=== PATIENT | female | born 1950 | race Caucasian/White ===

== ENCOUNTER 2016-09-07 03:18 | Inpatient (IN) | payer OTHER, MEDICARE ==
[~2016-09-07] VITALS: Ht 160 cm; Wt 108.3 kg
[2016-09-07] VITALS (10 sets, daily range): BP systolic 120–128; BP diastolic 62–66; PULSE 73–169; RESP 17–20; Ht 160 cm; Wt 108.3 kg
[~2016-09-07 03:18] MED LIST: ASPI-664 PO; CANA100T PO; ERGO500014 PO; FURO-110 PO; LIRA0.6P2 SQ; METO100T13 PO; OMEP20CA9 PO; SITA1TAB7 PO; VALS80TA2 PO
[2016-09-07] MEDS ORDERED: IPRATROPIUM (NEB) 0.5 MG/2.5 ML AMP NEB STA (03:32)
[2016-09-07] MEDS ORDERED: ALBUTEROL 0.5% (NEB) 2.5 MG/0.5 ML AMP INH STA (03:32)
[2016-09-07] MEDS ORDERED: METHYLPREDNISOLONE 125 MG INJ IV ONE (04:00)
--- NOTE | 2016-09-07 04:27 | ERD ---
ER Documentation Chief Complaint Date/Time DATE: 09/07/16 TIME: 04:20 Chief Complaint asthma, cough x 4 days HPI 65-year-old female presents here in emergency department for complaints of cough for 4 days, dry cough, does not cough up any phlegm or blood. Patient has history of asthma. Patient has been having wheezing. Patient does not have any chest pain, dyspnea on exertion or dyspnea on lying down. Patient did not take any medications to help with symptoms ROS All systems reviewed and are negative except as per history of present illness. Medications Home Meds Reported Medications Liraglutide (Victoza 3-Genaro) 0.6 Mg/0.1 Ml Pen.injctr, 1.8 MG SQ DAILY, SYR 03/16/14 Ergocalciferol* (Drisdol* (Vitamin D2)) 50,000 Unit Capsule, 91899 UNIT PO Q7D, CAP 03/16/14 Valsartan* (Diovan*) 80 Mg Tablet, 80 MG PO QAM, TAB 03/16/14 Aspirin* (Aspirin* (EC)) 81 Mg Tablet.dr, 81 MG PO DAILY, TAB 03/16/14 Furosemide* (Lasix*) 20 Mg Tablet, 20 MG PO QAM, TAB 03/16/14 Canagliflozin (Invokana) 100 Mg Tablet, 100 MG PO DAILY, TAB 03/16/14 Omeprazole* (Prilosec*) 20 Mg Capsule.dr, 20 MG PO BID, CAP 03/16/14 Sitagliptin Phos-Metformin Hcl (Janumet) 50-1,000 Mg Tablet, 1 TAB PO BID, TAB 03/16/14 Metoprolol Succinate* (Toprol XL*) 100 Mg Tab.sr.24h, 100 MG PO DAILY, TAB 03/16/14 Allergies Allergies: Coded Allergies: ibuprofen (Verified Allergy, Unknown, 03/16/14) levofloxacin (Verified Allergy, Unknown, 03/16/14) PMhx/Soc History of Surgery: Yes (MASTECTOMY) Hx Cardiac Disorders: Yes (HTN) Hx Psychiatric Problems: No Hx Miscellaneous Medical Probl: Yes (DM, ARTHRITIS, GASTRITIS) Hx Alcohol Use: No Hx Substance Use: No Hx Tobacco Use: No Smoking Status: Never smoker FmHx Family History: No coronary disease, No diabetes, No other Physical Exam Vitals Vital Signs Date Time Temp Pulse Resp B/P Pulse Ox O2 Delivery O2 Flow Rate FiO2 09/07/16 05:14 88 Room Air 09/07/16 04:56 138 20 95 21 09/07/16 03:42 84 24 93 21 09/07/16 03:22 98.4 122 20 145/88 93 Physical Exam GENERAL: The patient is well developed and appropriate for usual state of health, in no apparent distress. CHEST: Bilateral wheezing noted. There are no rales, crackles or rhonchi. HEART: Regular rate and rhythm. No murmurs, clicks, rubs or gallops. No S3 or S4. ABDOMEN: Soft, nontender and nondistended. Good bowel sounds. No rebound or guarding. No gross peritonitis. No gross organomegaly or masses. No Williamson sign or McBurney point tenderness. BACK: No midline or flank tenderness. EXTREMITIES: Equal pulses bilaterally. There is no peripheral clubbing, cyanosis or edema. No focal swelling or erythema. Full range of motion. Grossly neurovascularly intact. NEURO: Alert and oriented. Cranial nerves 2-12 intact. Motor strength in all 4 extremities with 5/5 strength. Sensation grossly intact. Normal speech and gait. SKIN: There is no apparent rash or petechia. The skin is warm and dry. HEMATOLOGIC AND LYMPHATIC: There is no evidence of excessive bruising or lymphedema. No gross cervical, axillary, or inguinal lymphadenopathy. Results 24 hrs Current Medications Medications (Trade) Dose Ordered Sig/Debra Route PRN Reason Start Time Stop Time Status Last Admin Dose Admin Ipratropium [place] (Atrovent 0.02% (Neb)) 0.5 mg ONCE STAT NEB 09/07/16 03:32 09/07/16 03:34 DC 09/07/16 03:38 Albuterol (Proventil 0.5% (Neb)) 10 mg ONCE STAT INH 09/07/16 03:32 09/07/16 03:34 DC 09/07/16 03:38 Methylprednisolone Sodium Succinate (Solu-Medrol) 125 mg ONCE ONCE IV 09/07/16 04:00 09/07/16 04:01 DC 09/07/16 03:42 Levalbuterol (Xopenex Neb) 5 mg ONCE STAT INH 09/07/16 04:45 09/07/16 04:47 DC Breathing treatment of albuterol and Atrovent was given here in emergency department, after treatment, patient's lungs sounds are clear and patient's oxygenation is better. Patient verbalized feeling much better. PROCEDURE: XR Chest. CLINICAL INDICATION: Asthma exacerbation TECHNIQUE: Portable single view of the chest COMPARISON: 08/15/2014 FINDINGS: Again seen is mild cardiomegaly and aortic calcification. Exuberant calcification of the anterior ends of the first ribs again seen. There is mild pulmonary vascular congestion with a suggestion of mild interstitial edema. Probable left base atelectasis. No definite focal infiltrate or pleural effusion. IMPRESSION: Probable mild congestive heart failure. RPTAT: HLBE Physician Jun Date Time Electronically viewed and signed by Jane Burns Physician on 09/07/2016 05 :07 LE/ CC: LAKESHA MORENO NP Procedures/MDM Medical Decision Making: Patient wheezing episodes and shortness of breath and hypoxia continues to persist after breathing treatment here in the emergency department. Patient also has possible mild congestive heart failure noted in the chest x-ray. Patient's oxygen saturation is 89% on room air. Patient needs to be further managed and admitted to the hospital, discussedthis case with attending physician, Dr. Cruz, but states patient's admission to the hospital. Departure Diagnosis: Primary Impression: Acute asthma exacerbation Asthma severity: unspecified severity Qualified Code: J45.901 - Asthma with acute exacerbation, unspecified asthma severity Additional Impression: Hypoxia Condition: Fair LAKESHA MORENO NP September 07, 2016 04:27 LAKESHA MORENO NP September 07, 2016 04:27
[2016-09-07] MEDS ORDERED: LEVALBUTEROL (NEB) 1.25 MG/0.5 ML AMP INH STA (04:45)
--- NOTE | 2016-09-07 05:07 | RADRPT ---
PROCEDURE: XR Chest. CLINICAL INDICATION: Asthma exacerbation TECHNIQUE: Portable single view of the chest COMPARISON: 08/15/2014 FINDINGS: Again seen is mild cardiomegaly and aortic calcification. Exuberant calcification of the anterior e nds of the first ribs again seen. There is mild pulmonary vascular congestion with a suggestion of mild interstitial edema. Probable left base atelectasis. No definite focal infiltrate or pleural e ffusion. IMPRESSION: Probable mild congestive heart failure. RPTAT: HLBE Jane Burns Physician Date Time Electronically viewed and signed by Jane Burns Physician on 09/07/2016 05:07 LE/
[2016-09-07 05:35] LABS: ADD SCAN DIFF NO
[2016-09-07] MEDS ORDERED: FUROSEMIDE 40 MG INJ IV STA (05:38)
--- NOTE | 2016-09-07 05:38 | EN ---
Date/Time of Note Date/Time of Note DATE: 09/07/16 TIME: 05:37 ER Progress Note Evaluated patient have to transfer her to ER to. Persistent rales. Diuresed with Lasix. Admitted to hospitalist. Patient's heart failure symptoms is concerning for acute decompensation and will require inpatient workup and monitoring. Further w/u for ischemia, arrhythmia, PE or dissection will be deferred to the inpatient team. Accepting Care Team: Current data and ongoing care discussed. Time: 5:40 AM Primary Provider: Hospitalist Consulting: [XOXOXO] Outstanding Data: none REBEKAH FLANNERY September 07, 2016 05:38
[2016-09-07 06:02] LABS: BASOPHILS % 0.5 % (0.0-2.0); EOSINOPHILS # 0.2 10^3/ul (0.0-0.5); EOSINOPHILS % 1.7 % (0.0-7.0); LYMPHOCYTES # 2.7 10^3/ul (0.8-2.9); LYMPHOCYTES % 30.2 % (15.0-51.0); MEAN CORPUSCULAR HEMOGLOBIN 23.8 pg (29.0-33.0); MEAN CORPUSCULAR HGB CONC 29.2 g/dl (32.0-37.0); MEAN CORPUSCULAR VOLUME 81.6 fl (82.0-101.0); MEAN PLATELET VOLUME 12.3 fl (7.4-10.4); MONOCYTE # 0.4 10^3/ul (0.3-0.9); MONOCYTES % 4.9 % (0.0-11.0); NEUTROPHIL # 5.5 10^3/ul (1.6-7.5); NEUTROPHILS % 62.5 % (39.0-77.0); PLATELET COUNT 226 10^3/UL (140-415); RED BLOOD COUNT 5.88 10^6/ul (4.20-5.40); RED CELL DISTRIBUTION WIDTH 15.4 % (11.5-14.5); WHITE BLOOD COUNT 8.8 10^3/ul (4.8-10.8)
[2016-09-07 06:04] LABS: ALBUMIN 4.5 g/dl (3.3-4.9); CHLORIDE 97 mmol/L (97-110)
[2016-09-07 06:05] LABS: POTASSIUM 3.7 mmol/L (3.5-5.1); SODIUM 142 mmol/L (135-144)
[2016-09-07 06:07] LABS: ALANINE AMINOTRANSFERASE 44 IU/L (13-69); ALBUMIN/GLOBULIN RATIO 1.18; ALKALINE PHOSPHATASE 93 IU/L (42-121); ANION GAP 18 (8-16); ASPARTATE AMINO TRANSFERASE 38 IU/L (15-46); BILIRUBIN,INDIRECT 0.1 mg/dl (0-1.1); BILIRUBIN,TOTAL 0.1 mg/dl (0.2-1.3); CARBON DIOXIDE 31 mmol/L (21-31); CREATININE 0.57 mg/dl (0.44-1.00); TOTAL PROTEIN 8.3 g/dl (6.1-8.1)
[2016-09-07 06:08] LABS: BLOOD UREA NITROGEN 17 mg/dl (7-20); CALCIUM 9.4 mg/dl (8.4-10.2); GLUCOSE 181 mg/dl (70-220)
[2016-09-07 06:16] LABS: B-TYPE NATRIURETIC PEPTIDE 424 PG/ML (0-125)
[2016-09-07 06:27] LABS: TROPONIN-I < 0.012 ng/ml (0.00-0.12)
[2016-09-07] MEDS ORDERED: ACETAMINOPHEN 500 MG TAB PO STA (07:48)
[2016-09-07] MEDS ORDERED: ONDANSETRON 4 MG INJ IV PRN (09:30)
[2016-09-07] MEDS ORDERED: NACL 0.9% 3 ML SYG IV SCH (09:30)
[2016-09-07] MEDS ORDERED: morphine 2 MG INJ IV PRN (09:30)
[2016-09-07] MEDS ORDERED: LORAZEPAM 2 MG INJ IV PRN (09:30)
[2016-09-07] MEDS ORDERED: LEVALBUTEROL (NEB) 0.63 MG/3 ML AMP HHN PRN (09:30)
[2016-09-07] MEDS ORDERED: IPRATROPIUM (NEB) 0.5 MG/2.5 ML AMP HHN PRN (09:30)
[2016-09-07] MEDS: VALSARTAN 80 MG TAB PO SCH (10:47)
[2016-09-07] MEDS ORDERED: DEXTROSE 50% 50 ML SYRINGE IV PRN ×2 (11:00)
[2016-09-07] MEDS ORDERED: GLUCAGON 1 MG INJ IM PRN (11:00)
[2016-09-07] MEDS ORDERED: LABETALOL HCL 20MG INJ IV ONE (11:00)
[2016-09-07] MEDS ORDERED: GLUCOSE GEL 15 GRAM TUBE BUCCAL PRN (11:00)
[2016-09-07] MEDS ORDERED: METOPROLOL (XL) 50 MG TAB PO SCH (11:00)
[2016-09-07] MEDS ORDERED: GLUCOSE GEL 15 GRAM TUBE PO PRN ×2 (11:00)
[2016-09-07] MEDS: LINAGLIPTIN 5 MG TABLET PO SCH (11:28)
[2016-09-07] MEDS: CANAGLIFLOZIN XX SCH ×2 (11:30→19:30)
[2016-09-07] MEDS: [UNRECOGNIZED DRUG - OTHER] XX SCH ×2 (11:30→19:30)
--- NOTE | 2016-09-07 11:56 | CONS ---
Date/Time of Note Date/Time of Note DATE: 09/07/16 TIME: 11:46 Assessment/Plan Assessment/Plan Additional Assessment/Plan Shortness of breath with likely acute decompensated congestive heart failure SVT Hypertension Diabetes Obesity Skin and breast cancer -Patient shortness of breath likely multifactorial. Chest x-ray with mild pulmonary vascular congestion difficult to fully ascertain given patient's size. ECG without significant ischemic abnormalities. Will obtain serial cardiac enzymes, echocardiogram, increase IV Lasix to twice daily. Change beta- roxanne to twice daily dosing. Maintain potassium above 4.0 and magnesium above 2.0. Consultation Date/Type/Reason Admit Date/Time September 07, 2016 at 05:56 Type of Consultation: cv Reason for Consultation shortness of breath Hx of Present Illness This is a 65-year-old female with past medical history of hypertension, diabetes , skin and breast cancer who presented to the emergency room with 4 days symptoms of shortness of breath. Patient with intermittent cough which has been nonproductive and occasional wheezing. She denies any fevers or chills. She denies any chest pain, dizziness. She denies any lower extremity swelling. Shortness of breath is worse with exertion and lying down flat. Because of the above symptoms, she came to the emergency room for further evaluation and care. She does feel better since her admission. She does have symptoms of occasional palpitations which are usually worse with activity. She denies exertional dizziness or chest pain. 12 point review of systems was performed with all pertinent positives and negatives mentioned above and all else is negative Past Medical History Skin and breast cancer Medical History: high cholesterol, hypertension Past Surgical History Resection of tumors Family History Significant Family History: no pertinent family hx Social History Alcohol Use: none Smoking Status: Never smoker Other Social History Lives at home Exam/Review of Systems Vital Signs Vitals Vital Signs Date Time Temp Pulse Resp B/P Pulse Ox O2 Delivery O2 Flow Rate FiO2 09/07/16 10:21 169 09/07/16 09:59 98.0 18 128/64 91 09/07/16 08:51 Nasal Cannula 2.0 09/07/16 04:56 21 Exam No apparent distress, no dyspnea with speaking Constitutional: alert, obese, oriented Head: normocephalic Neck: supple Respiratory: other (Coarse breath sounds bilaterally, no wheezing) Cardiovascular: other (S1-S2 heard), regular rate and rhythm Gastrointestinal: bowel sounds, non-tender, soft Extremities: edema (Trace) Results Result Diagram: 09/07/16 0526 09/07/16 0526 Results 24 hrs Laboratory Tests Test 09/07/16 05:26 White Blood Count 8.8 Red Blood Count 5.88 H Hemoglobin 14.0 Hematocrit 48.0 H Mean Corpuscular Volume 81.6 L Mean Corpuscular Hemoglobin 23.8 L Mean Corpuscular Hemoglobin Concent 29.2 L Red Cell Distribution Width 15.4 H Platelet Count 226 Mean Platelet Volume 12.3 H Neutrophils % 62.5 Lymphocytes % 30.2 Monocytes % 4.9 Eosinophils % 1.7 Basophils % 0.5 Nucleated Red Blood Cells % 0.0 Neutrophils # 5.5 Lymphocytes # 2.7 Monocytes # 0.4 Eosinophils # 0.2 Basophils # 0.0 Nucleated Red Blood Cells # 0.0 Sodium Level 142 Potassium Level 3.7 Chloride Level 97 Carbon Dioxide Level 31 Anion Gap 18 H Blood Urea Nitrogen 17 Creatinine 0.57 Glucose Level 181 Calcium Level 9.4 Total Bilirubin 0.1 L Direct Bilirubin 0.00 Indirect Bilirubin 0.1 Aspartate Amino Transf (AST/SGOT) 38 Alanine Aminotransferase (ALT/SGPT) 44 Alkaline Phosphatase 93 Troponin I < 0.012 B-Type Natriuretic Peptide 424 H Total Protein 8.3 H Albumin 4.5 Globulin 3.80 H Albumin/Globulin Ratio 1.18 Medications Medications Current Medications Lorazepam (Ativan) 0.5 mg Q6H PRN IV ANXIETY; Start 09/07/16 at 09:30 Ondansetron HCl (Zofran Inj) 4 mg Q6H PRN IV NAUSEA AND/OR VOMITING; Start at 09:30 Furosemide (Lasix) 20 mg DAILY IV ; Start 09/08/16 at 09:00 Acetaminophen (Tylenol Tab) 650 mg Q6H PRN PO PAIN LEVEL 1-3 OR FEVER; Start at 09:30 Morphine Sulfate (morphine) 2 mg Q4H PRN IV PAIN LEVEL 7-10; Start 09/07/16 at 09:30 Enoxaparin Sodium (Lovenox) 40 mg DAILY SC ; Start 09/08/16 at 09:00 Ergocalciferol (Drisdol) 50,000 unit Q7D PO ; Start 09/14/16 at 09:00 Metoprolol Succinate (Toprol Xl) 100 mg DAILY PO Last administered on 10:47; Admin Dose 100 MG; Start 09/07/16 at 11:00 Valsartan (Diovan) 80 mg QAM PO Last administered on 09/07/16 10:47; Admin Dose 80 MG; Start 09/07/16 at 11:00 Miscellaneous Information 100 mg DAILY PO ; Start 09/08/16 at 09:00; Status UNV Miscellaneous Information 1.8 mg DAILY SQ ; Start 09/08/16 at 09:00; Status UNV Pantoprazole (Protonix Tab) 40 mg DAILY@,18 PO ; Start 09/07/16 at 18:00 Linagliptin (Tradjenta) 5 mg DAILY PO Last administered on 09/07/16 11:28; Admin Dose 5 MG; Start 09/07/16 at 11:00 Miscellaneous Information 1 ea NOTE XX ; Start 09/07/16 at 11:00 Glucose (Glutose) 15 gm Q15M PRN PO DECREASED GLUCOSE; Start 09/07/16 at 11:00 Glucose (Glutose) 22.5 gm Q15M PRN PO DECREASED GLUCOSE; Start 09/07/16 at 11: 00 Dextrose (D50w Syringe) 25 ml Q15M PRN IV DECREASED GLUCOSE; Start 09/07/16 at 11:00 Dextrose (D50w Syringe) 50 ml Q15M PRN IV DECREASED GLUCOSE; Start 09/07/16 at 11:00 Glucagon (Glucagen) 1 mg Q15M PRN IM DECREASED GLUCOSE; Start 09/07/16 at 11:00 Glucose (Glutose) 15 gm Q15M PRN BUCCAL DECREASED GLUCOSE; Start 09/07/16 at 11 :00 Miscellaneous Information (*Order Clarification Bulletin) MEDICATION REQUIRES CLARIFICATI... Q8H XX ; Start 09/07/16 at 11:30 Procedures Procedures ECG demonstrates sinus rhythm at 85 bpm, QRS 84 ms, no significant ischemic ST2 abnormality Telemetry reviewed with episode of SVT this morning as high as the 160s Tra Khan DO September 07, 2016 11:56
[2016-09-07] MEDS ORDERED: POTASSIUM CHLORIDE (SR) 20 MEQ TAB PO STA (11:57)
[2016-09-07] MEDS ORDERED: MAGNESIUM SULFATE 2 GM/50 ML 50 ML IVPB ONE (12:00)
--- NOTE | 2016-09-07 12:15 | HP ---
DATE OF ADMISSION: 09/07/2016 TIME SEEN: 6:30 a.m. CHIEF COMPLAINT: Cough. HISTORY OF PRESENT ILLNESS: The patient is a 65-year-old female with a history of hypertension, mya betes, gastritis who presents to the emergency department complaining of cough. Cough has almost en tirely been dry and has been going on for about 5 days now. Also reported shortness of breath. Den ied chest pain, fever, chills, nausea, vomiting. When presented to the ER, blood pressure 145/88, heart rate 122, respiratory rate 20, temperature 98 .4, oxygen saturation 93% on room air, but oxygen saturation has been documented in the ER to be as low as 88% on room air. Also, the heart rate has been as high as 146. Last CBC and CMP were within acceptable range. Chest x-ray shows mild pulmonary vascular congestion with a suggestion of mild i nterstitial edema and a probable left base atelectasis. BMP was just a little over 400. The patien t received 40 mg of IV Lasix, Solu-Medrol, and had breathing treatment with albuterol and Atrovent w hile she was in the ER. REVIEW OF SYSTEMS: A 12-point review was performed, negative except as mentioned in the HPI. PAST MEDICAL HISTORY: As per HPI. PAST SURGICAL HISTORY: Left-sided mastectomy. SOCIAL HISTORY: Denied a history of tobacco, alcohol. or illicit drug use. ALLERGIES: 1. IBUPROFEN. 2. LEVOFLOXACIN. HOME MEDICATIONS: 1. Toprol XL. 2. Diovan. 3. Aspirin. 4. Lasix. 5. Prilosec. 6. Invokana. 7. Victoza. 8. Janumet. 9. Vitamin B2. PHYSICAL EXAMINATION: VITAL SIGNS: Blood pressure 138/92, heart rate 101, respiratory rate 20, temperature earlier was 98 .4, oxygen saturation 94% on 3 L. GENERAL: No acute distress. HEENT: No obvious head deformity. Pupils reactive to light. Extraocular muscles intact. CARDIOVASCULAR: Tachycardic with regular rhythm. LUNGS: Scattered wheezing. ABDOMEN: Soft, nontender, nondistended. Positive bowel sounds. EXTREMITIES: There is ____ edema. LABORATORY: CBC and CMP within acceptable range. IMAGING: Chest x-ray with results as mentioned in the HPI. IMPRESSION: 1. Probable congestive heart failure. 2. Dry cough, likely secondary to above. 3. History of hypertension. 4. History of diabetes. 5. History of gastritis. OSCAR: Admit to telemetry unit. Will obtain a 2-D echo. We will continue her home medications with adjustment as needed. Will place her on IV Lasix instead. We will trend her troponins. Cardiology consult will be placed as needed. Further workup and management per clinical course. Dictated By: REBEKAH JOHNSON/GASPER Conf#: [id number] DID#: [id number]
--- NOTE | 2016-09-07 12:38 | RADRPT ---
Echocardiogram Report Patient Name: RENE CRUZ Gender: Female Date: 1950 Study Date: 07-Sep-2016 Green Inspector: Thalia Thomas [facility] Location: 5561 Ref. Physician: REBEKAH TIJERINA Quality: Technically Difficult Study Procedures: Transthoracic echocardiogram with complete 2D, M-Mode, and doppler examination. Indications: Congestive Heart Failure. 2D/M Mode Doppler Measurement Value Normal Ranges Measurement Value Normal Ranges LVIDd 2D 4.2 3.5 - 5.6 cm AV Peak Nasim 2.1 m/sec LVIDs 2D 2.5 2.1 - 4.1 cm AV Peak PG 18.0 mmHg FS 2D 41.1 % MV E Peak Nasim 0.9 m/sec LVPWd 2D 0.8 0.6 - 1.1 cm MV A Peak Nasim 1.3 m/sec IVSd 2D 0.8 0.6 - 1.1 cm MV E/A 0.7 IVS/LVPW 2D 1.0 MV Decel Time 130 msec AoR Diam 2D 2.6 2.0 - 3.7 cm MV E/A 0.7 LA/Ao 2D 1 0 - 1 TR Peak Nasim 2.1 m/sec EDV 2D 72.0 cm3 TR Peak PG 18.0 mmHg ESV 2D 14.7 cm3 RVSP 21.0 mmHg LA Dimen 2D 3.5 2.3 - 4.0 cm Findings Left Ventricle: Hyperdynamic left ventricular systolic function. Normal left ventricular cavity size. Normal left ventricular wall thickness. Ejection fraction is visually estimated at 70 %. Tissue Doppler/Mitral Doppler indices are consistent with impaired relaxation (Stage I diastolic dysfunction). Resting left ventricular outflow tract velocity 4.30 m/sec. Resting left ventricular outflow tract gradient 74.0 mmHg. Right Ventricle: Not well visualized. Left Atrium: The left atrium is normal in size. Right Atrium: The right atrium is normal in size. Mitral Valve: Normal appearance and function of the mitral valve with trace physiologic regurgitation. Aortic Valve: No significant aortic stenosis or insufficiency. Aortic cusps appear mildly calcified. Tricuspid Valve: Normal appearance of the tricuspid valve. Estimated peak PA systolic pressure 21 mmHg. There is trace tricuspid regurgitation. Pulmonic Valve: Pulmonic valve not well visualized. Pericardium: Normal pericardium with no significant pericardial effusion. Pleural effusion seen. Aorta: Not well visualized. IVC: Normal size and normal respiratory collapse consistent with normal right atrial pressure. Conclusions 1.Hyperdynamic left ventricular systolic function. Normal left ventricular cavity size. Normal left ventricular wall thickness. Ejection fraction is visually estimated at 70 %. Tissue Doppler/Mitral Doppler indices are consistent with impaired relaxation (Stage I diastolic dysfunction). 2.The left atrium is normal in size. 3.The right atrium is normal in size. 4.No significant valvular stenosis or regurgitation seen. 5.Normal pericardium with no significant pericardial effusion. Pleural effusion seen. Electronically Signed By: Tra Khan 07-Sep-2016 12:37:41 -0700 Patient Name: RENE CRUZ Study Date: 07-Sep-2016 [id number]
[2016-09-07] MEDS ORDERED: MAGNESIUM SULFATE 1 GM/D5W 100 ML IVPB ONE (15:00)
[2016-09-07] MEDS: ACETAMINOPHEN 325 MG TAB PO PRN (16:13)
[2016-09-07] MEDS: metFORMIN 500 MG TAB PO SCH (17:23)
[2016-09-07] MEDS ORDERED: FUROSEMIDE 20 MG INJ IV SCH (18:00)
[2016-09-07] MEDS: PANTOPRAZOLE (EC) 40 MG TAB PO SCH (18:15)
[2016-09-07] MEDS: INSULIN ASPART [NOVOLOG] 3 ML PEN SC SCH ×3 (18:53→20:50)
[2016-09-07] MEDS: METOPROLOL 50 MG TAB PO SCH (20:45)
[2016-09-07] MEDS: INSULIN GLARGINE [LANtus] 3 ML PEN SC SCH (20:46)
[2016-09-07] MEDS: ZOLPIDEM 5 MG TAB PO PRN (20:55)
[2016-09-08] VITALS (12 sets, daily range): BP systolic 97–133; BP diastolic 56–76; PULSE 57–78; RESP 16–20
[2016-09-08] MEDS: ACETAMINOPHEN 325 MG TAB PO PRN ×3 (00:16→11:54)
[2016-09-08] MEDS: ACCU-CHEK XX SCH (02:00)
[2016-09-08] MEDS: CANAGLIFLOZIN XX SCH ×3 (03:30→10:11)
[2016-09-08] MEDS: [UNRECOGNIZED DRUG - OTHER] XX SCH ×3 (03:30→10:11)
[2016-09-08] MEDS: PANTOPRAZOLE (EC) 40 MG TAB PO SCH ×2 (06:08→17:45)
[2016-09-08 07:16] LABS: ADD SCAN DIFF NO
[2016-09-08 07:24] LABS: BASOPHILS % 0.3 % (0.0-2.0); EOSINOPHILS # 0.1 10^3/ul (0.0-0.5); EOSINOPHILS % 0.8 % (0.0-7.0); HEMATOCRIT 45.5 % (37.0-47.0); HEMOGLOBIN 13.5 g/dl (12.0-16.0); LYMPHOCYTES # 2.7 10^3/ul (0.8-2.9); LYMPHOCYTES % 23.9 % (15.0-51.0); MEAN CORPUSCULAR HEMOGLOBIN 24.2 pg (29.0-33.0); MEAN CORPUSCULAR HGB CONC 29.7 g/dl (32.0-37.0); MEAN CORPUSCULAR VOLUME 81.5 fl (82.0-101.0); MEAN PLATELET VOLUME 12.5 fl (7.4-10.4); MONOCYTE # 0.9 10^3/ul (0.3-0.9); MONOCYTES % 7.6 % (0.0-11.0); NEUTROPHIL # 7.6 10^3/ul (1.6-7.5); NEUTROPHILS % 67.1 % (39.0-77.0); PLATELET COUNT 249 10^3/UL (140-415); RED BLOOD COUNT 5.58 10^6/ul (4.20-5.40); RED CELL DISTRIBUTION WIDTH 15.9 % (11.5-14.5); WHITE BLOOD COUNT 11.3 10^3/ul (4.8-10.8)
[2016-09-08 07:39] LABS: ALBUMIN 4.2 g/dl (3.3-4.9); ALBUMIN/GLOBULIN RATIO 1.13; BILIRUBIN,INDIRECT 0.1 mg/dl (0-1.1); BILIRUBIN,TOTAL 0.1 mg/dl (0.2-1.3); CALCIUM 9.4 mg/dl (8.4-10.2); CHOL/HDL RATIO 4.5 RATIO; CREATININE 0.6 mg/dl (0.44-1.00); POTASSIUM 4.8 mmol/L (3.5-5.1); TOTAL PROTEIN 7.9 g/dl (6.1-8.1)
[2016-09-08 08:04] LABS: THYROID STIMULATING HORMONE 0.852 MIU/L (0.465-4.680)
[2016-09-08] MEDS: metFORMIN 500 MG TAB PO SCH ×2 (08:50→17:45)
[2016-09-08] MEDS: VALSARTAN 80 MG TAB PO SCH (08:51)
[2016-09-08] MEDS: METOPROLOL 50 MG TAB PO SCH ×2 (08:51→22:04)
[2016-09-08] MEDS: LINAGLIPTIN 5 MG TABLET PO SCH (08:51)
[2016-09-08] MEDS: ENOXAPARIN 40 MG/0.4 ML SYG SC SCH (08:54)
[2016-09-08] MEDS: INSULIN ASPART [NOVOLOG] 3 ML PEN SC SCH ×7 (08:55→22:06)
[2016-09-08] MEDS ORDERED: NON-FORMULARY/PATIENT OWN MED (Canagliflozin (Invokana) 100 MG) XX SCH (09:00)
[2016-09-08] MEDS ORDERED: FUROSEMIDE 40 MG INJ IV SCH (09:00)
[2016-09-08] MEDS ORDERED: FUROSEMIDE 20 MG INJ IV SCH (09:00)
--- NOTE | 2016-09-08 11:08 | CONS ---
Date/Time of Note Date/Time of Note DATE: 09/08/16 TIME: 11:05 Assessment/Plan Assessment/Plan Additional Assessment/Plan Shortness of breath Mild acute decompensated diastolic congestive heart failure Hyperdynamic left ventricular systolic function SVT Hypertension Diabetes Obesity Skin and breast cancer -Patient's echocardiogram with normal ejection fraction and hyperdynamic. No significant valvular pathology. Patient with ambulation around hallway today with symptoms of fatigue and shortness of breath with saturation down to the mid 80s. It is unlikely that decompensated congestive heart failure is the main etiology of her shortness of breath and hypoxia. I would order a CT chest , pulmonary evaluation. Maintain potassium above 4.0 and magnesium above 2.0. Consultation Date/Type/Reason Admit Date/Time September 07, 2016 at 05:56 Initial Consult Date Type of Consultation: cv 24 HR Interval Summary Free Text/Dictation Shortness of breath is better. Denies chest pain or palpitations or dizziness. Exam/Review of Systems Vital Signs Vitals Vital Signs Date Time Temp Pulse Resp B/P Pulse Ox O2 Delivery O2 Flow Rate FiO2 09/08/16 08:30 60 09/08/16 07:26 98.0 18 115/76 94 09/08/16 04:00 Room Air 2.0 09/08/16 01:02 21 Intake and Output 09/07/16 09/07/16 09/08/16 15:00 23:00 07:00 Intake Total 150 ml 400 ml Balance 150 ml 400 ml Exam No apparent distress, sitting in chair Constitutional: alert, obese, oriented Head: normocephalic Neck: supple Respiratory: other (Coarse breath sounds bilaterally, no wheezing) Cardiovascular: other (S1-S2 heard), regular rate and rhythm Gastrointestinal: bowel sounds, non-tender, soft Extremities: other (Trace lower extremity edema) Results Result Diagram: 09/08/16 0640 09/08/16 0640 Results 24 hrs Laboratory Tests Test 09/07/16 11:27 09/07/16 15:09 09/07/16 17:22 09/07/16 18:47 Bedside Glucose 258 H 242 H 299 H Troponin I < 0.012 Test 09/07/16 20:38 09/08/16 01:51 09/08/16 06:40 09/08/16 07:35 Bedside Glucose 225 H 213 156 White Blood Count 11.3 #H Red Blood Count 5.58 H Hemoglobin 13.5 Hematocrit 45.5 Mean Corpuscular Volume 81.5 L Mean Corpuscular Hemoglobin 24.2 L Mean Corpuscular Hemoglobin Concent 29.7 L Red Cell Distribution Width 15.9 H Platelet Count 249 Mean Platelet Volume 12.5 H Neutrophils % 67.1 Lymphocytes % 23.9 Monocytes % 7.6 Eosinophils % 0.8 Basophils % 0.3 Nucleated Red Blood Cells % 0.0 Neutrophils # 7.6 H Lymphocytes # 2.7 Monocytes # 0.9 Eosinophils # 0.1 Basophils # 0.0 Nucleated Red Blood Cells # 0.0 Sodium Level 136 Potassium Level 4.8 Chloride Level 96 L Carbon Dioxide Level 32 H Anion Gap 13 Blood Urea Nitrogen 21 H Creatinine 0.60 Glucose Level 168 Hemoglobin A1c 8.3 H Calcium Level 9.4 Magnesium Level 2.0 Total Bilirubin 0.1 L Direct Bilirubin 0.00 Indirect Bilirubin 0.1 Aspartate Amino Transf (AST/SGOT) 37 Alanine Aminotransferase (ALT/SGPT) 45 Alkaline Phosphatase 70 Total Protein 7.9 Albumin 4.2 Globulin 3.70 H Albumin/Globulin Ratio 1.13 Triglycerides Level 95 Cholesterol Level 159 LDL Cholesterol, Calculated 105 HDL Cholesterol 35 Cholesterol/HDL Ratio 4.5 Thyroid Stimulating Hormone (TSH) 0.852 Medications Medications Current Medications Lorazepam (Ativan) 0.5 mg Q6H PRN IV ANXIETY; Start 09/07/16 at 09:30 Ondansetron HCl (Zofran Inj) 4 mg Q6H PRN IV NAUSEA AND/OR VOMITING; Start at 09:30 Acetaminophen (Tylenol Tab) 650 mg Q6H PRN PO PAIN LEVEL 1-3 OR FEVER Last administered on 09/08/16 06:08; Admin Dose 650 MG; Start 09/07/16 at 09:30 Morphine Sulfate (morphine) 2 mg Q4H PRN IV PAIN LEVEL 7-10; Start 09/07/16 at 09:30 Enoxaparin Sodium (Lovenox) 40 mg DAILY SC Last administered on 09/08/16 08:54 ; Admin Dose 40 MG; Start 09/08/16 at 09:00 Ergocalciferol (Drisdol) 50,000 unit Q7D PO ; Start 09/14/16 at 09:00 Valsartan (Diovan) 80 mg QAM PO Last administered on 09/08/16 08:51; Admin Dose 80 MG; Start 09/07/16 at 11:00 Miscellaneous Information 100 mg DAILY XX ; Start 09/08/16 at 09:00; Status UNV Miscellaneous Information 1.8 mg DAILY XX ; Start 09/08/16 at 09:00; Status UNV Pantoprazole (Protonix Tab) 40 mg DAILY@,18 PO Last administered on 06:08; Admin Dose 40 MG; Start 09/07/16 at 18:00 Linagliptin (Tradjenta) 5 mg DAILY PO Last administered on 09/08/16 08:51; Admin Dose 5 MG; Start 09/07/16 at 11:00 Miscellaneous Information 1 ea NOTE XX ; Start 09/07/16 at 11:00 Glucose (Glutose) 15 gm Q15M PRN PO DECREASED GLUCOSE; Start 09/07/16 at 11:00 Glucose (Glutose) 22.5 gm Q15M PRN PO DECREASED GLUCOSE; Start 09/07/16 at 11: 00 Dextrose (D50w Syringe) 25 ml Q15M PRN IV DECREASED GLUCOSE; Start 09/07/16 at 11:00 Dextrose (D50w Syringe) 50 ml Q15M PRN IV DECREASED GLUCOSE; Start 09/07/16 at 11:00 Glucagon (Glucagen) 1 mg Q15M PRN IM DECREASED GLUCOSE; Start 09/07/16 at 11:00 Glucose (Glutose) 15 gm Q15M PRN BUCCAL DECREASED GLUCOSE; Start 09/07/16 at 11 :00 Miscellaneous Information (*Order Clarification Bulletin) MEDICATION REQUIRES CLARIFICATI... Q8H XX ; Start 09/07/16 at 11:30 Metoprolol Tartrate (Lopressor) 50 mg BID PO Last administered on 09/08/16 08: 51; Admin Dose 50 MG; Start 09/07/16 at 21:00 Furosemide (Lasix) 20 mg DAILY IV Last administered on 09/08/16 08:51; Admin Dose 20 MG; Start 09/08/16 at 09:00 Zolpidem Tartrate (Ambien) 5 mg HS PRN PO INSOMNIA Last administered on 20:55; Admin Dose 5 MG; Start 5/24/17 at 17:00 Insulin Glargine (Lantus) 15 unit DAILY@20 SC Last administered on 09/07/16t 20 :46; Admin Dose 15 UNIT; Start 09/07/16 at 20:00 Diagnostic Test (Pha) (Accu-Chek) 1 ea 02 XX ; Start 09/08/16 at 02:00 Tra Khan DO September 08, 2016 11:08
[2016-09-08] MEDS ORDERED: MAGNESIUM SULFATE 2 GM/50 ML 50 ML IVPB ONE (11:30)
--- NOTE | 2016-09-08 12:09 | CONS ---
Date/Time of Note Date/Time of Note DATE: 09/08/16 TIME: 12:03 Assessment/Plan Assessment/Plan Additional Assessment/Plan Assessment recommendations; 1. Patient admitted for asthma flareup with acute bronchitis. 2. Chest x-ray findings show mild interstitial prominence which is indicative of poorly controlled asthma the patient also describing flareup every 3-4 months. He does complain of almost daily nocturnal wheezing. 3. Remote history of left breast cancer without any evidence of recurrence. 5. Currently no evidence of CHF. 6. History of hypertension or diabetes. 7. Possibly underlying sleep apnea. Discontinue Lasix. Start the patient on DuoNeb scheduled every 6 hours and discontinue as needed Xopenex and Atrovent. Start oral Zithromax 500 mg daily. Solu-Medrol 40 mg IV every 8 hours at least for 3 doses. Monitor blood sugars. Cancel CT chest. Patient will need to have a sleep study done on outpatient basis. Patient is current on her pneumococcal vaccine. Consultation Date/Type/Reason Admit Date/Time September 07, 2016 at 05:56 Date of Consultation: September 08, 2016 Type of Consultation: Pulmonary Reason for Consultation Pulmonary consultations requested for evaluation of shortness of breath. History of presenting illness; patient is a very pleasant 65-year-old lady who came into the emergency room yesterday with a few days history of increasing cough, wheezing and shortness of breath associated with yellow-green sputum production. Patient denies any fever, chest pain, angina. Does complain of mild sinus congestion and postnasal drip. According to her she does get short of breath upon exertion which has been a chronic complaint. According to her she has a flareup of asthma once every 3-4 months. Patient denies any high-grade fever any body aches myalgias to suggest any viral illness. Past medical history; 1. History of asthma for the last couple of years. 2. History of diabetes and hypertension. 3. No known coronary artery disease. 4. History of left breast cancer, with left mastectomy, patient did not require any chemotherapy or radiation. No evidence of any recurrence. 5. Bilateral cataract surgery. Medications; reviewed. Allergies; ibuprofen and Levaquin. Social history; patient never smoked, and most of any alcohol or drug abuse. Family history; she is single, she has 3 children. Various family members of diabetes hypertension and coronary artery disease in the family. 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 Review of systems; denies any visual changes, headache, seizures. Denies any hearing loss. Complains of mild sinus congestion. Denies any sore throat, dysphagia. Angina. Denies any chest pain. Any nausea, vomiting. Melena, hematochezia. Any weight change. Denies any edema. Does complain of chronic mild dyspnea on exertion. Denies any skin changes. As of occasional nocturnal wheezing. And shortness of breath. General exam; elderly lady, awake alert currently in no distress. Patient is quite overweight. Past Medical History Medical History: high cholesterol, hypertension Social History Alcohol Use: none Smoking Status: Never smoker Exam/Review of Systems Vital Signs Vitals Vital Signs Date Time Temp Pulse Resp B/P Pulse Ox O2 Delivery O2 Flow Rate FiO2 09/08/16 11:24 98.0 69 16 101/56 94 09/08/16 04:00 Room Air 2.0 09/08/16 01:02 21 Intake and Output 09/07/16 09/07/16 09/08/16 15:00 23:00 07:00 Intake Total 150 ml 400 ml Balance 150 ml 400 ml Exam HEENT exam is; supple neck, no JVD. No lymphadenopathy. Midline trachea. No thyromegaly. Patient has fair dentition. Has bilateral intraocular lens implants. No thyromegaly. No neck bruits. Chest examined; diminished breath sound bilaterally with very minimal expiratory wheezing bilaterally. S1-S2 audible, no murmurs. Regular rhythm. Patient has a left mastectomy. Abdomen examination; soft, protuberant. Nontender. No organomegaly. Bowel sounds audible. Extremity examination; no peripheral edema. Pulses 1+ bilaterally. No clubbing. VALVE INSPECTOR examination; no focal deficit. Results Result Diagram: 09/08/16 0640 09/08/16 0640 Results 24 hrs Laboratory Tests Test 09/07/16 15:09 09/07/16 17:22 09/07/16 18:47 09/07/16 20:38 Troponin I < 0.012 Bedside Glucose 242 H 299 H 225 H Test 09/08/16 01:51 09/08/16 06:40 09/08/16 07:35 09/08/16 11:35 Bedside Glucose 213 156 169 White Blood Count 11.3 #H Red Blood Count 5.58 H Hemoglobin 13.5 Hematocrit 45.5 Mean Corpuscular Volume 81.5 L Mean Corpuscular Hemoglobin 24.2 L Mean Corpuscular Hemoglobin Concent 29.7 L Red Cell Distribution Width 15.9 H Platelet Count 249 Mean Platelet Volume 12.5 H Neutrophils % 67.1 Lymphocytes % 23.9 Monocytes % 7.6 Eosinophils % 0.8 Basophils % 0.3 Nucleated Red Blood Cells % 0.0 Neutrophils # 7.6 H Lymphocytes # 2.7 Monocytes # 0.9 Eosinophils # 0.1 Basophils # 0.0 Nucleated Red Blood Cells # 0.0 Sodium Level 136 Potassium Level 4.8 Chloride Level 96 L Carbon Dioxide Level 32 H Anion Gap 13 Blood Urea Nitrogen 21 H Creatinine 0.60 Glucose Level 168 Hemoglobin A1c 8.3 H Calcium Level 9.4 Magnesium Level 2.0 Total Bilirubin 0.1 L Direct Bilirubin 0.00 Indirect Bilirubin 0.1 Aspartate Amino Transf (AST/SGOT) 37 Alanine Aminotransferase (ALT/SGPT) 45 Alkaline Phosphatase 70 Total Protein 7.9 Albumin 4.2 Globulin 3.70 H Albumin/Globulin Ratio 1.13 Triglycerides Level 95 Cholesterol Level 159 LDL Cholesterol, Calculated 105 HDL Cholesterol 35 Cholesterol/HDL Ratio 4.5 Thyroid Stimulating Hormone (TSH) 0.852 Medications Medications Current Medications Lorazepam (Ativan) 0.5 mg Q6H PRN IV ANXIETY; Start 09/07/16 at 09:30 Ondansetron HCl (Zofran Inj) 4 mg Q6H PRN IV NAUSEA AND/OR VOMITING; Start at 09:30 Acetaminophen (Tylenol Tab) 650 mg Q6H PRN PO PAIN LEVEL 1-3 OR FEVER Last administered on 09/08/16 06:08; Admin Dose 650 MG; Start 09/07/16 at 09:30 Morphine Sulfate (morphine) 2 mg Q4H PRN IV PAIN LEVEL 7-10; Start 09/07/16 at 09:30 Enoxaparin Sodium (Lovenox) 40 mg DAILY SC Last administered on 09/08/16 08:54 ; Admin Dose 40 MG; Start 09/08/16 at 09:00 Ergocalciferol (Drisdol) 50,000 unit Q7D PO ; Start 09/14/16 at 09:00 Valsartan (Diovan) 80 mg QAM PO Last administered on 09/08/16 08:51; Admin Dose 80 MG; Start 09/07/16 at 11:00 Miscellaneous Information 100 mg DAILY XX ; Start 09/08/16 at 09:00; Status UNV Miscellaneous Information 1.8 mg DAILY XX ; Start 09/08/16 at 09:00; Status UNV Pantoprazole (Protonix Tab) 40 mg DAILY@06,18 PO Last administered on 06:08; Admin Dose 40 MG; Start 09/07/16 at 18:00 Linagliptin (Tradjenta) 5 mg DAILY PO Last administered on 09/08/16 08:51; Admin Dose 5 MG; Start 09/07/16 at 11:00 Miscellaneous Information 1 ea NOTE XX ; Start 09/07/16 at 11:00 Glucose (Glutose) 15 gm Q15M PRN PO DECREASED GLUCOSE; Start 09/07/16 at 11:00 Glucose (Glutose) 22.5 gm Q15M PRN PO DECREASED GLUCOSE; Start 09/07/16 at 11: 00 Dextrose (D50w Syringe) 25 ml Q15M PRN IV DECREASED GLUCOSE; Start 09/07/16 at 11:00 Dextrose (D50w Syringe) 50 ml Q15M PRN IV DECREASED GLUCOSE; Start 09/07/16 at 11:00 Glucagon (Glucagen) 1 mg Q15M PRN IM DECREASED GLUCOSE; Start 09/07/16 at 11:00 Glucose (Glutose) 15 gm Q15M PRN BUCCAL DECREASED GLUCOSE; Start 09/07/16 at 11 :00 Miscellaneous Information (*Order Clarification Bulletin) MEDICATION REQUIRES CLARIFICATI... Q8H XX ; Start 09/07/16 at 11:30 Metoprolol Tartrate (Lopressor) 50 mg BID PO Last administered on 09/08/16 08: 51; Admin Dose 50 MG; Start 09/07/16 at 21:00 Furosemide (Lasix) 20 mg DAILY IV Last administered on 09/08/16 08:51; Admin Dose 20 MG; Start 09/08/16 at 09:00 Zolpidem Tartrate (Ambien) 5 mg HS PRN PO INSOMNIA Last administered on 20:55; Admin Dose 5 MG; Start 09/07/16 at 17:00 Insulin Glargine (Lantus) 15 unit DAILY@20 SC Last administered on 09/07/16t 20 :46; Admin Dose 15 UNIT; Start 09/07/16 at 20:00 Diagnostic Test (Pha) 1 ea 1 ea 02 XX ; Start 09/08/16 at 02:00 Magnesium Sulfate (Magnesium Sulfate 2 Gm/50 ml) 50 ml @ 25 mls/hr ONCE ONCE IVPB ; Start 09/08/16 at 11:30; Stop 09/08/16 at 13:29 MENG HANNA September 08, 2016 12:09
[2016-09-08] MEDS ORDERED: ALBUTEROL/IPRATROPIUM (NEB) 3 ML AMP HHN PRN (12:30)
--- NOTE | 2016-09-08 12:39 | PN ---
Date/Time of Note Date/Time of Note DATE: 09/08/16 TIME: 12:36 Assessment/Plan VTE Prophylaxis VTE Prophylaxis Intervention: LMWH Lines/Catheters IV Catheter Type (from Nrs): Saline Lock Assessment/Plan Assessment/Plan 1. Hypoxia and shortness of breath likely secondary to #2 2. Acute asthma exacerbation: Improving patient still hypoxic 3. Mild CHF exacerbation: improving 4. Hypertension good control 5. Diabetes mellitus type 2: A1c is 8.3, but with good control in-house 6. Chronic gastritis: Stable 7. Morbid obesity Dispo: continue current therapy /continue to titrate meds for better overall control/ continue bronchodilator therapy /continue antibiotics Appreciate with cardiology and pulmonary input Wean off oxygen as tolerated Care plan discussed with patient and her daughter. Subjective 24 Hr Interval Summary Free Text/Dictation Patient still with shortness of breath, we tried to take her off oxygen but she desaturated to the 80s. Feels slightly overall better however. Exam/Review of Systems Vital Signs Vitals Vital Signs Date Time Temp Pulse Resp B/P Pulse Ox O2 Delivery O2 Flow Rate FiO2 09/08/16 11:24 98.0 69 16 101/56 94 09/08/16 04:00 Room Air 2.0 09/08/16 01:02 21 Intake and Output 09/07/16 09/07/16 09/08/16 15:00 23:00 07:00 Intake Total 150 ml 400 ml Balance 150 ml 400 ml Exam No apparent distress, sitting in chair Constitutional: alert, obese, oriented Head: normocephalic Neck: supple Respiratory: other (Coarse breath sounds bilaterally, no wheezing) Cardiovascular: other (S1-S2 heard), regular rate and rhythm Gastrointestinal: bowel sounds, non-tender, soft Extremities: other (Trace lower extremity edema) Results Result Diagram: 09/08/16 0640 09/08/16 0640 Results 24 hrs Laboratory Tests Test 09/07/16 15:09 09/07/16 17:22 09/07/16 18:47 09/07/16 20:38 Troponin I < 0.012 Bedside Glucose 242 H 299 H 225 H Test 09/08/16 01:51 09/08/16 06:40 09/08/16 07:35 09/08/16 11:35 Bedside Glucose 213 156 169 White Blood Count 11.3 #H Red Blood Count 5.58 H Hemoglobin 13.5 Hematocrit 45.5 Mean Corpuscular Volume 81.5 L Mean Corpuscular Hemoglobin 24.2 L Mean Corpuscular Hemoglobin Concent 29.7 L Red Cell Distribution Width 15.9 H Platelet Count 249 Mean Platelet Volume 12.5 H Neutrophils % 67.1 Lymphocytes % 23.9 Monocytes % 7.6 Eosinophils % 0.8 Basophils % 0.3 Nucleated Red Blood Cells % 0.0 Neutrophils # 7.6 H Lymphocytes # 2.7 Monocytes # 0.9 Eosinophils # 0.1 Basophils # 0.0 Nucleated Red Blood Cells # 0.0 Sodium Level 136 Potassium Level 4.8 Chloride Level 96 L Carbon Dioxide Level 32 H Anion Gap 13 Blood Urea Nitrogen 21 H Creatinine 0.60 Glucose Level 168 Hemoglobin A1c 8.3 H Calcium Level 9.4 Magnesium Level 2.0 Total Bilirubin 0.1 L Direct Bilirubin 0.00 Indirect Bilirubin 0.1 Aspartate Amino Transf (AST/SGOT) 37 Alanine Aminotransferase (ALT/SGPT) 45 Alkaline Phosphatase 70 Total Protein 7.9 Albumin 4.2 Globulin 3.70 H Albumin/Globulin Ratio 1.13 Triglycerides Level 95 Cholesterol Level 159 LDL Cholesterol, Calculated 105 HDL Cholesterol 35 Cholesterol/HDL Ratio 4.5 Thyroid Stimulating Hormone (TSH) 0.852 Medications Medications Current Medications Lorazepam (Ativan) 0.5 mg Q6H PRN IV ANXIETY; Start 09/07/16 at 09:30 Ondansetron HCl (Zofran Inj) 4 mg Q6H PRN IV NAUSEA AND/OR VOMITING; Start at 09:30 Acetaminophen (Tylenol Tab) 650 mg Q6H PRN PO PAIN LEVEL 1-3 OR FEVER Last administered on 09/08/16 11:54; Admin Dose 650 MG; Start 09/07/16 at 09:30 Morphine Sulfate (morphine) 2 mg Q4H PRN IV PAIN LEVEL 7-10; Start 09/07/16 at 09:30 Enoxaparin Sodium (Lovenox) 40 mg DAILY SC Last administered on 09/08/16 08:54 ; Admin Dose 40 MG; Start 09/08/16 at 09:00 Ergocalciferol (Drisdol) 50,000 unit Q7D PO ; Start 09/14/16 at 09:00 Valsartan (Diovan) 80 mg QAM PO Last administered on 09/08/16 08:51; Admin Dose 80 MG; Start 09/07/16 at 11:00 Miscellaneous Information 100 mg DAILY XX ; Start 09/08/16 at 09:00; Status UNV Miscellaneous Information 1.8 mg DAILY XX ; Start 09/08/16 at 09:00; Status UNV Pantoprazole (Protonix Tab) 40 mg DAILY@06,18 PO Last administered on 06:08; Admin Dose 40 MG; Start 09/07/16 at 18:00 Linagliptin (Tradjenta) 5 mg DAILY PO Last administered on 09/08/16 08:51; Admin Dose 5 MG; Start 09/07/16 at 11:00 Miscellaneous Information 1 ea NOTE XX ; Start 09/07/16 at 11:00 Glucose (Glutose) 15 gm Q15M PRN PO DECREASED GLUCOSE; Start 09/07/16 at 11:00 Glucose (Glutose) 22.5 gm Q15M PRN PO DECREASED GLUCOSE; Start 09/07/16 at 11: 00 Dextrose (D50w Syringe) 25 ml Q15M PRN IV DECREASED GLUCOSE; Start 09/07/16 at 11:00 Dextrose (D50w Syringe) 50 ml Q15M PRN IV DECREASED GLUCOSE; Start 09/07/16 at 11:00 Glucagon (Glucagen) 1 mg Q15M PRN IM DECREASED GLUCOSE; Start 09/07/16 at 11:00 Glucose (Glutose) 15 gm Q15M PRN BUCCAL DECREASED GLUCOSE; Start 09/07/16 at 11 :00 Miscellaneous Information (*Order Clarification Bulletin) MEDICATION REQUIRES CLARIFICATI... Q8H XX ; Start 09/07/16 at 11:30 Metoprolol Tartrate (Lopressor) 50 mg BID PO Last administered on 09/08/16 08: 51; Admin Dose 50 MG; Start 09/07/16 at 21:00 Zolpidem Tartrate (Ambien) 5 mg HS PRN PO INSOMNIA Last administered on 20:55; Admin Dose 5 MG; Start 09/07/16 at 17:00 Insulin Glargine (Lantus) 15 unit DAILY@20 SC Last administered on 09/07/16 20 :46; Admin Dose 15 UNIT; Start 09/07/16 at 20:00 Diagnostic Test (Pha) 1 ea 1 ea 02 XX ; Start 09/08/16 at 02:00 Magnesium Sulfate (Magnesium Sulfate 2 Gm/50 ml) 50 ml @ 25 mls/hr ONCE ONCE IVPB Last administered on 09/08/16t 11:54; Admin Dose 25 MLS/HR; Start at 11:30; Stop 09/08/16 at 13:29 Methylprednisolone Sodium Succinate (Solu-Medrol) 40 mg Q8 IV ; Start 09/08/16 at 14:00; Status UNV Azithromycin (Zithromax) 500 mg DAILY PO ; Start 09/08/16 at 12:30; Status UNV Procedures Procedures Echocardiogram Report Patient Name: RENE CRUZ Gender: Female Date: 1950 Study Date: 07-Sep-2016 [employer] 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 Physician: REBEKAH TIJERINA Quality: Technically Difficult Study Procedures: Transthoracic echocardiogram with complete 2D, M-Mode, and doppler examination. Indications: Congestive Heart Failure. 2D/M Mode Doppler Measurement Value Normal Ranges Measurement Value Normal Ranges LVIDd 2D 4.2 3.5 - 5.6 cm AV Peak Nasim 2.1 m/sec LVIDs 2D 2.5 2.1 - 4.1 cm AV Peak PG 18.0 mmHg FS 2D 41.1 % MV E Peak Nasim 0.9 m/sec LVPWd 2D 0.8 0.6 - 1.1 cm MV A Peak Nasim 1.3 m/sec IVSd 2D 0.8 0.6 - 1.1 cm MV E/A 0.7 IVS/LVPW 2D 1.0 MV Decel Time 130 msec AoR Diam 2D 2.6 2.0 - 3.7 cm MV E/A 0.7 LA/Ao 2D 1 0 - 1 TR Peak Nasim 2.1 m/sec EDV 2D 72.0 cm3 TR Peak PG 18.0 mmHg ESV 2D 14.7 cm3 RVSP 21.0 mmHg LA Dimen 2D 3.5 2.3 - 4.0 cm Findings Left Ventricle: Hyperdynamic left ventricular systolic function. Normal left ventricular cavity size. Normal left ventricular wall thickness. Ejection fraction is visually estimated at 70 %. Tissue Doppler/Mitral Doppler indices are consistent with impaired relaxation (Stage I diastolic dysfunction). Resting left ventricular outflow tract velocity 4.30 m/sec. Resting left ventricular outflow tract gradient 74.0 mmHg. Right Ventricle: Not well visualized. Left Atrium: The left atrium is normal in size. Right Atrium: The right atrium is normal in size. Mitral Valve: Normal appearance and function of the mitral valve with trace physiologic regurgitation. Aortic Valve: No significant aortic stenosis or insufficiency. Aortic cusps appear mildly calcified. Tricuspid Valve: Normal appearance of the tricuspid valve. Estimated peak PA systolic pressure 21 mmHg. There is trace tricuspid regurgitation. Pulmonic Valve: Pulmonic valve not well visualized. Pericardium: Normal pericardium with no significant pericardial effusion. Pleural effusion seen. Aorta: Not well visualized. IVC: Normal size and normal respiratory collapse consistent with normal right atrial pressure. Conclusions 1. Hyperdynamic left ventricular systolic function. Normal left ventricular cavity size. Normal left ventricular wall thickness. Ejection fraction is visually estimated at 70 %. Tissue Doppler/Mitral Doppler indices are consistent with impaired relaxation (Stage I diastolic dysfunction). 2. The left atrium is normal in size. 3. The right atrium is normal in size. 4. No significant valvular stenosis or regurgitation seen. 5. Normal pericardium with no significant pericardial effusion. Pleural effusion seen. Electronically Signed By: Tra Khan 07-Sep-2016 12:37:41 -0700 Patient Name: RENE CRUZ Study Date: 07-Sep-2016 [id number] JAMES IBARRA September 08, 2016 12:38
[2016-09-08 14:02] LABS: ADD UMIC YES; URINE BILIRUBIN (Dip) NEGATIVE (NEGATIVE); URINE BLOOD (Dip) NEGATIVE (NEGATIVE); URINE COLOR LT. YELLOW (YELLOW); URINE GLUCOSE (Dip) NEGATIVE (NEGATIVE); URINE KETONES (Dip) NEGATIVE (NEGATIVE); URINE LEUKOCYTE ESTERASE (Dip) 1+ (NEGATIVE); URINE NITRITE (Dip) NEGATIVE (NEGATIVE); URINE TOTAL PROTEIN (Dip) NEGATIVE (NEGATIVE); URINE UROBILINOGEN (Dip) 0.2 E.U./dL (0.1-1.0)
[2016-09-08 14:16] LABS: SQUAMOUS EPITHELIAL CELL,UR FEW; URINE RBCS NONE SEEN /HPF (0)
[2016-09-08] MEDS: METHYLPREDNISOLONE 40 MG INJ IV SCH ×2 (15:34→22:07)
[2016-09-08] MEDS: AZITHROMYCIN 250 MG TAB PO SCH (15:34)
[2016-09-08] MEDS: ZOLPIDEM 5 MG TAB PO PRN (22:04)
[2016-09-08] MEDS: INSULIN GLARGINE [LANtus] 3 ML PEN SC SCH (22:05)
[2016-09-09] VITALS (12 sets, daily range): BP systolic 112–134; BP diastolic 54–72; PULSE 65–86; RESP 16–20
[2016-09-09] MEDS: ACCU-CHEK XX SCH (02:00)
[2016-09-09] MEDS: ACETAMINOPHEN 325 MG TAB PO PRN ×3 (03:05→23:50)
[2016-09-09] MEDS: [UNRECOGNIZED DRUG - OTHER] XX SCH ×3 (03:30→19:30)
[2016-09-09] MEDS: CANAGLIFLOZIN XX SCH ×3 (03:30→19:30)
[2016-09-09] MEDS: METHYLPREDNISOLONE 40 MG INJ IV SCH ×3 (06:06→21:35)
[2016-09-09] MEDS: PANTOPRAZOLE (EC) 40 MG TAB PO SCH ×2 (06:06→17:30)
[2016-09-09] MEDS: INSULIN ASPART [NOVOLOG] 3 ML PEN SC SCH ×7 (07:49→20:48)
[2016-09-09 07:51] LABS: ADD SCAN DIFF NO
[2016-09-09 07:59] LABS: BASOPHILS % 0.1 % (0.0-2.0); HEMATOCRIT 47.1 % (37.0-47.0); HEMOGLOBIN 14.2 g/dl (12.0-16.0); LYMPHOCYTES % 16.9 % (15.0-51.0); MEAN CORPUSCULAR HEMOGLOBIN 24.3 pg (29.0-33.0); MEAN CORPUSCULAR HGB CONC 30.1 g/dl (32.0-37.0); MEAN CORPUSCULAR VOLUME 80.5 fl (82.0-101.0); MEAN PLATELET VOLUME 11.8 fl (7.4-10.4); MONOCYTE # 0.2 10^3/ul (0.3-0.9); MONOCYTES % 1.8 % (0.0-11.0); NEUTROPHIL # 9.7 10^3/ul (1.6-7.5); NEUTROPHILS % 80.9 % (39.0-77.0); PLATELET COUNT 263 10^3/UL (140-415); RED BLOOD COUNT 5.85 10^6/ul (4.20-5.40); RED CELL DISTRIBUTION WIDTH 15.1 % (11.5-14.5)
[2016-09-09 08:11] LABS: POTASSIUM 5.7 mmol/L (3.5-5.1)
[2016-09-09 08:14] LABS: CREATININE 0.56 mg/dl (0.44-1.00)
[2016-09-09 08:15] LABS: CALCIUM 9.9 mg/dl (8.4-10.2); MAGNESIUM 1.9 mg/dl (1.7-2.5)
[2016-09-09] MEDS: VALSARTAN 80 MG TAB PO SCH (09:00)
[2016-09-09] MEDS: AZITHROMYCIN 250 MG TAB PO SCH (09:00)
[2016-09-09] MEDS: metFORMIN 500 MG TAB PO SCH ×2 (09:01→17:30)
[2016-09-09] MEDS: LINAGLIPTIN 5 MG TABLET PO SCH (09:01)
[2016-09-09] MEDS: METOPROLOL 50 MG TAB PO SCH ×2 (09:01→20:49)
--- NOTE | 2016-09-09 09:05 | CONS ---
Date/Time of Note Date/Time of Note DATE: 09/09/16 TIME: 09:03 Assessment/Plan Assessment/Plan Additional Assessment/Plan Assessment recommendations; next 1. Patient admitted for asthma exacerbation with acute bronchitis with marked clinical improvement. 2. History of hypertension diabetes. Patient can be discharged home on a Medrol Dosepak. She needs to be started on long-acting beta agonist with inhaled steroid either Dulera or Advair or Symbicort. Patient will benefit from a home nebulizer at home with use of albuterol. She will also need to be on Zithromax at least for 4 more days orally. Consultation Date/Type/Reason Admit Date/Time September 07, 2016 at 05:56 Initial Consult Date 09/08/16 Type of Consultation: Pulmonary 24 HR Interval Summary Free Text/Dictation Patient condition is markedly improved. Denies any further shortness of breath , coughing wheezing sputum production. General exam; elderly lady, awake alert currently in no distress. Exam/Review of Systems Vital Signs Vitals Vital Signs Date Time Temp Pulse Resp B/P Pulse Ox O2 Delivery O2 Flow Rate FiO2 09/09/16 08:37 72 09/09/16 07:24 98.0 18 119/72 98 09/09/16 02:57 3.0 09/08/16 20:00 Nasal Cannula 09/08/16 01:02 21 Intake and Output 09/08/16 09/08/16 09/09/16 15:00 23:00 07:00 Intake Total 1150 ml 400 ml Output Total 1300 ml 2 ml Balance -150 ml 398 ml Exam HEENT exam; supple neck, no JVD. No lymphadenopathy. Midline trachea. No thyromegaly. No neck masses. Pupils are midsize and reactive to light. Chest examination; clear to auscultation. S1-S2 audible, no murmurs. Regular rhythm. Abdomen examination; soft, nontender. No organomegaly. Bowel sounds audible. Extremity examination; no peripheral edema. 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 Results Result Diagram: 09/09/16 0700 09/09/16 0710 Results 24 hrs Laboratory Tests Test 09/08/16 11:35 09/08/16 13:30 09/08/16 17:11 09/08/16 21:07 Bedside Glucose 169 174 234 H Urine Color LT. YELLOW Urine Clarity CLEAR Urine pH 5.5 Urine Specific [place] 1.010 Urine Ketones NEGATIVE Urine Nitrite NEGATIVE Urine Bilirubin NEGATIVE Urine Urobilinogen 0.2 E.U./dL Urine Leukocyte Esterase 1+ H Urine Microscopic RBC NONE SEEN Urine Microscopic WBC 2-5 Urine Squamous Epithelial Cells FEW Urine Hemoglobin NEGATIVE Urine Glucose NEGATIVE Urine Total Protein NEGATIVE Test 09/09/16 07:00 09/09/16 07:10 09/09/16 07:46 White Blood Count 12.0 H Red Blood Count 5.85 H Hemoglobin 14.2 Hematocrit 47.1 H Mean Corpuscular Volume 80.5 L Mean Corpuscular Hemoglobin 24.3 L Mean Corpuscular Hemoglobin Concent 30.1 L Red Cell Distribution Width 15.1 H Platelet Count 263 Mean Platelet Volume 11.8 H Neutrophils % 80.9 H Lymphocytes % 16.9 Monocytes % 1.8 Eosinophils % 0.0 Basophils % 0.1 Nucleated Red Blood Cells % 0.0 Neutrophils # 9.7 H Lymphocytes # 2.0 Monocytes # 0.2 L Eosinophils # 0.0 Basophils # 0.0 Nucleated Red Blood Cells # 0.0 Sodium Level 138 Potassium Level 5.7 H Chloride Level 93 L Carbon Dioxide Level 30 Anion Gap 21 #H Blood Urea Nitrogen 24 H Creatinine 0.56 Glucose Level 209 Calcium Level 9.9 Magnesium Level 1.9 Bedside Glucose 196 Medications Medications Current Medications Lorazepam (Ativan) 0.5 mg Q6H PRN IV ANXIETY; Start 09/07/16 at 09:30 Ondansetron HCl (Zofran Inj) 4 mg Q6H PRN IV NAUSEA AND/OR VOMITING; Start at 09:30 Acetaminophen (Tylenol Tab) 650 mg Q6H PRN PO PAIN LEVEL 1-3 OR FEVER Last administered on 09/09/16 03:05; Admin Dose 650 MG; Start 09/07/16 at 09:30 Morphine Sulfate (morphine) 2 mg Q4H PRN IV PAIN LEVEL 7-10; Start 09/07/16 at 09:30 Enoxaparin Sodium (Lovenox) 40 mg DAILY SC Last administered on 09/08/16 08:54 ; Admin Dose 40 MG; Start 09/08/16 at 09:00 Ergocalciferol (Drisdol) 50,000 unit Q7D PO ; Start 09/14/16 at 09:00 Valsartan (Diovan) 80 mg QAM PO Last administered on 09/08/16 08:51; Admin Dose 80 MG; Start 09/07/16 at 11:00 Miscellaneous Information 100 mg DAILY XX ; Start 09/08/16 at 09:00; Status UNV Miscellaneous Information 1.8 mg DAILY XX ; Start 09/08/16 at 09:00; Status UNV Pantoprazole (Protonix Tab) 40 mg DAILY@06,18 PO Last administered on 06:06; Admin Dose 40 MG; Start 09/07/16 at 18:00 Linagliptin (Tradjenta) 5 mg DAILY PO Last administered on 09/08/16 08:51; Admin Dose 5 MG; Start 09/07/16 at 11:00 Miscellaneous Information 1 ea NOTE XX ; Start 09/07/16 at 11:00 Glucose (Glutose) 15 gm Q15M PRN PO DECREASED GLUCOSE; Start 09/07/16 at 11:00 Glucose (Glutose) 22.5 gm Q15M PRN PO DECREASED GLUCOSE; Start 09/07/16 at 11: 00 Dextrose (D50w Syringe) 25 ml Q15M PRN IV DECREASED GLUCOSE; Start 09/07/16 at 11:00 Dextrose (D50w Syringe) 50 ml Q15M PRN IV DECREASED GLUCOSE; Start 09/07/16 at 11:00 Glucagon (Glucagen) 1 mg Q15M PRN IM DECREASED GLUCOSE; Start 09/07/16 at 11:00 Glucose (Glutose) 15 gm Q15M PRN BUCCAL DECREASED GLUCOSE; Start 09/07/16 at 11 :00 Miscellaneous Information (*Order Clarification Bulletin) MEDICATION REQUIRES CLARIFICATI... Q8H XX ; Start 09/07/16 at 11:30 Metoprolol Tartrate (Lopressor) 50 mg BID PO Last administered on 09/08/16 22: 04; Admin Dose 50 MG; Start 09/07/16 at 21:00 Zolpidem Tartrate (Ambien) 5 mg HS PRN PO INSOMNIA Last administered on 22:04; Admin Dose 5 MG; Start 09/07/16 at 17:00 Insulin Glargine (Lantus) 15 unit DAILY@20 SC Last administered on 09/08/16 22 :05; Admin Dose 15 UNIT; Start 09/07/16 at 20:00 Diagnostic Test (Pha) (Accu-Chek) 1 ea 02 XX ; Start 09/08/16 at 02:00 Methylprednisolone Sodium Succinate (Solu-Medrol) 40 mg Q8 IV Last administered on 09/09/16 06:06; Admin Dose 40 MG; Start 09/08/16 at 14:00 Azithromycin (Zithromax) 500 mg DAILY PO Last administered on 09/08/16 15:34; Admin Dose 500 MG; Start 09/08/16 at 13:30 MENG HANNA September 09, 2016 09:05
[2016-09-09] MEDS: ENOXAPARIN 40 MG/0.4 ML SYG SC SCH (09:06)
--- NOTE | 2016-09-09 10:11 | CONS ---
Date/Time of Note Date/Time of Note DATE: 09/09/16 TIME: 10:08 Assessment/Plan Assessment/Plan Additional Assessment/Plan Shortness of breath Asthma exacerbation Mild acute decompensated diastolic congestive heart failure Hyperdynamic left ventricular systolic function SVT Hypertension Diabetes Obesity Skin and breast cancer -Discussed with our pulmonary colleagues. Patient with likely asthma exacerbation. Currently undergoing pulmonary treatment. Diuretics have been stopped. Patient with rising potassium, would hold valsartan. No further episodes of SVT seen on telemetry Consultation Date/Type/Reason Admit Date/Time September 07, 2016 at 05:56 Type of Consultation: cv 24 HR Interval Summary Free Text/Dictation Patient still complaining of cough which is now productive with green phlegm. Intermittent shortness of breath. Denies chest pain Exam/Review of Systems Vital Signs Vitals Vital Signs Date Time Temp Pulse Resp B/P Pulse Ox O2 Delivery O2 Flow Rate FiO2 09/09/16 08:37 72 09/09/16 07:24 98.0 18 119/72 98 09/09/16 02:57 3.0 09/08/16 20:00 Nasal Cannula 09/08/16 01:02 21 Intake and Output 09/08/16 09/08/16 09/09/16 15:00 23:00 07:00 Intake Total 1150 ml 400 ml Output Total 1300 ml 2 ml Balance -150 ml 398 ml Exam Sitting in chair, no dyspnea with speaking, coughing at times Constitutional: alert, obese, oriented Head: normocephalic Neck: supple Respiratory: other (Coarse breath sounds bilaterally, no wheezing) Cardiovascular: other (S1-S2 heard), regular rate and rhythm Gastrointestinal: bowel sounds, non-tender, soft Extremities: edema (Trace) Results Result Diagram: 09/09/16 0700 09/09/16 0710 Results 24 hrs Laboratory Tests Test 09/08/16 11:35 09/08/16 13:30 09/08/16 17:11 09/08/16 21:07 Bedside Glucose 169 174 234 H Urine Color LT. YELLOW Urine Clarity CLEAR Urine pH 5.5 Urine Specific [place] 1.010 Urine Ketones NEGATIVE Urine Nitrite NEGATIVE Urine Bilirubin NEGATIVE Urine Urobilinogen 0.2 E.U./dL Urine Leukocyte Esterase 1+ H Urine Microscopic RBC NONE SEEN Urine Microscopic WBC 2-5 Urine Squamous Epithelial Cells FEW Urine Hemoglobin NEGATIVE Urine Glucose NEGATIVE Urine Total Protein NEGATIVE Test 09/09/16 07:00 09/09/16 07:10 09/09/16 07:46 White Blood Count 12.0 H Red Blood Count 5.85 H Hemoglobin 14.2 Hematocrit 47.1 H Mean Corpuscular Volume 80.5 L Mean Corpuscular Hemoglobin 24.3 L Mean Corpuscular Hemoglobin Concent 30.1 L Red Cell Distribution Width 15.1 H Platelet Count 263 Mean Platelet Volume 11.8 H Neutrophils % 80.9 H Lymphocytes % 16.9 Monocytes % 1.8 Eosinophils % 0.0 Basophils % 0.1 Nucleated Red Blood Cells % 0.0 Neutrophils # 9.7 H Lymphocytes # 2.0 Monocytes # 0.2 L Eosinophils # 0.0 Basophils # 0.0 Nucleated Red Blood Cells # 0.0 Sodium Level 138 Potassium Level 5.7 H Chloride Level 93 L Carbon Dioxide Level 30 Anion Gap 21 #H Blood Urea Nitrogen 24 H Creatinine 0.56 Glucose Level 209 Calcium Level 9.9 Magnesium Level 1.9 Bedside Glucose 196 Medications Medications Current Medications Lorazepam (Ativan) 0.5 mg Q6H PRN IV ANXIETY; Start 09/07/16 at 09:30 Ondansetron HCl (Zofran Inj) 4 mg Q6H PRN IV NAUSEA AND/OR VOMITING; Start at 09:30 Acetaminophen (Tylenol Tab) 650 mg Q6H PRN PO PAIN LEVEL 1-3 OR FEVER Last administered on 09/09/16 03:05; Admin Dose 650 MG; Start 09/07/16 at 09:30 Morphine Sulfate (morphine) 2 mg Q4H PRN IV PAIN LEVEL 7-10; Start 09/07/16 at 09:30 Enoxaparin Sodium (Lovenox) 40 mg DAILY SC Last administered on 09/09/16 09:06 ; Admin Dose 40 MG; Start 09/08/16 at 09:00 Ergocalciferol (Drisdol) 50,000 unit Q7D PO ; Start 09/14/16 at 09:00 Valsartan (Diovan) 80 mg QAM PO Last administered on 09/09/16 09:00; Admin Dose 80 MG; Start 09/07/16 at 11:00 Miscellaneous Information 100 mg DAILY XX ; Start 09/08/16 at 09:00; Status UNV Miscellaneous Information 1.8 mg DAILY XX ; Start 09/08/16 at 09:00; Status UNV Pantoprazole (Protonix Tab) 40 mg DAILY@06,18 PO Last administered on 06:06; Admin Dose 40 MG; Start 09/07/16 at 18:00 Linagliptin (Tradjenta) 5 mg DAILY PO Last administered on 09/09/16 09:01; Admin Dose 5 MG; Start 09/07/16 at 11:00 Miscellaneous Information 1 ea NOTE XX ; Start 09/07/16 at 11:00 Glucose (Glutose) 15 gm Q15M PRN PO DECREASED GLUCOSE; Start 09/07/16 at 11:00 Glucose (Glutose) 22.5 gm Q15M PRN PO DECREASED GLUCOSE; Start 09/07/16 at 11: 00 Dextrose (D50w Syringe) 25 ml Q15M PRN IV DECREASED GLUCOSE; Start 09/07/16 at 11:00 Dextrose (D50w Syringe) 50 ml Q15M PRN IV DECREASED GLUCOSE; Start 09/07/16 at 11:00 Glucagon (Glucagen) 1 mg Q15M PRN IM DECREASED GLUCOSE; Start 09/07/16 at 11:00 Glucose (Glutose) 15 gm Q15M PRN BUCCAL DECREASED GLUCOSE; Start 09/07/16 at 11 :00 Miscellaneous Information (*Order Clarification Bulletin) MEDICATION REQUIRES CLARIFICATI... Q8H XX ; Start 09/07/16 at 11:30 Metoprolol Tartrate (Lopressor) 50 mg BID PO Last administered on 09/09/16 09: 01; Admin Dose 50 MG; Start 09/07/16 at 21:00 Zolpidem Tartrate (Ambien) 5 mg HS PRN PO INSOMNIA Last administered on 22:04; Admin Dose 5 MG; Start 09/07/16 at 17:00 Insulin Glargine (Lantus) 15 unit DAILY@20 SC Last administered on 09/08/16 22 :05; Admin Dose 15 UNIT; Start 09/07/16 at 20:00 Diagnostic Test (Pha) (Accu-Chek) 1 ea 02 XX ; Start 09/08/16 at 02:00 Methylprednisolone Sodium Succinate (Solu-Medrol) 40 mg Q8 IV Last administered on 09/09/16 06:06; Admin Dose 40 MG; Start 09/08/16 at 14:00 Azithromycin (Zithromax) 500 mg DAILY PO Last administered on 09/09/16 09:00; Admin Dose 500 MG; Start 09/08/16 at 13:30 Tra Khan DO September 09, 2016 10:11
[2016-09-09] MEDS ORDERED: hydrALAzine 20 MG INJ IV PRN (14:00)
--- NOTE | 2016-09-09 14:00 | PN ---
Date/Time of Note Date/Time of Note DATE: 09/09/16 TIME: 13:55 Assessment/Plan VTE Prophylaxis VTE Prophylaxis Intervention: LMWH Lines/Catheters IV Catheter Type (from Nrs): Saline Lock Urinary Cath still in place: No Assessment/Plan Assessment/Plan acute asthma exacerbation with acute bronchitis Mild acute decompensated diastolic congestive heart failure- was on lasix but it is stopped today by cardiology Hyperdynamic left ventricular systolic function SVT episodes, no more episode since today AM Hypertension Diabetes Obesity Skin and breast cancer IV solumedrol for acute asthma exacerbation, azithromycin for acute bronchitis Breathing Rx ATC ambulate and measure oxygen saturation diovan stopped due to rising K continue MTP for HTN and IV hydratlazine prn lovenox for DVT prophylaxis Subjective 24 Hr Interval Summary Free Text/Dictation c/o SOB, cough with green phelm cardiology stopped lasix because it look like asthma Exam/Review of Systems Vital Signs Vitals Vital Signs Date Time Temp Pulse Resp B/P Pulse Ox O2 Delivery O2 Flow Rate FiO2 09/09/16 12:21 65 09/09/16 11:16 98.0 16 125/61 92 09/09/16 02:57 3.0 09/08/16 20:00 Nasal Cannula 09/08/16 01:02 21 Intake and Output 09/08/16 09/08/16 09/09/16 15:00 23:00 07:00 Intake Total 1150 ml 400 ml Output Total 1300 ml 2 ml Balance -150 ml 398 ml Exam Sitting in chair, no dyspnea with speaking, coughing at times Constitutional: alert, obese, oriented Head: normocephalic Neck: supple Respiratory: other (Coarse breath sounds bilaterally, no wheezing) Cardiovascular: other (S1-S2 heard), regular rate and rhythm Gastrointestinal: bowel sounds, non-tender, soft Extremities: edema (Trace) Results Result Diagram: 09/09/16 0700 09/09/16 0710 Results 24 hrs Laboratory Tests Test 09/08/16 17:11 09/08/16 21:07 09/09/16 07:00 09/09/16 07:10 Bedside Glucose 174 234 H White Blood Count 12.0 H Red Blood Count 5.85 H Hemoglobin 14.2 Hematocrit 47.1 H Mean Corpuscular Volume 80.5 L Mean Corpuscular Hemoglobin 24.3 L Mean Corpuscular Hemoglobin Concent 30.1 L Red Cell Distribution Width 15.1 H Platelet Count 263 Mean Platelet Volume 11.8 H Neutrophils % 80.9 H Lymphocytes % 16.9 Monocytes % 1.8 Eosinophils % 0.0 Basophils % 0.1 Nucleated Red Blood Cells % 0.0 Neutrophils # 9.7 H Lymphocytes # 2.0 Monocytes # 0.2 L Eosinophils # 0.0 Basophils # 0.0 Nucleated Red Blood Cells # 0.0 Sodium Level 138 Potassium Level 5.7 H Chloride Level 93 L Carbon Dioxide Level 30 Anion Gap 21 #H Blood Urea Nitrogen 24 H Creatinine 0.56 Glucose Level 209 Calcium Level 9.9 Magnesium Level 1.9 Test 09/09/16 07:46 09/09/16 11:49 Bedside Glucose 196 224 H Medications Medications Current Medications Lorazepam (Ativan) 0.5 mg Q6H PRN IV ANXIETY; Start 09/07/16 at 09:30 Ondansetron HCl (Zofran Inj) 4 mg Q6H PRN IV NAUSEA AND/OR VOMITING; Start at 09:30 Acetaminophen (Tylenol Tab) 650 mg Q6H PRN PO PAIN LEVEL 1-3 OR FEVER Last administered on 09/09/16 10:38; Admin Dose 650 MG; Start 09/07/16 at 09:30 Morphine Sulfate (morphine) 2 mg Q4H PRN IV PAIN LEVEL 7-10; Start 09/07/16 at 09:30 Enoxaparin Sodium (Lovenox) 40 mg DAILY SC Last administered on 09/09/16 09:06 ; Admin Dose 40 MG; Start 09/08/16 at 09:00 Ergocalciferol (Drisdol) 50,000 unit Q7D PO ; Start 09/14/16 at 09:00 Miscellaneous Information 100 mg DAILY XX ; Start 09/08/16 at 09:00; Status UNV Miscellaneous Information 1.8 mg DAILY XX ; Start 09/08/16 at 09:00; Status UNV Pantoprazole (Protonix Tab) 40 mg DAILY@06,18 PO Last administered on 06:06; Admin Dose 40 MG; Start 09/07/16 at 18:00 Linagliptin (Tradjenta) 5 mg DAILY PO Last administered on 09/09/16 09:01; Admin Dose 5 MG; Start 09/07/16 at 11:00 Miscellaneous Information 1 ea NOTE XX ; Start 09/07/16 at 11:00 Glucose (Glutose) 15 gm Q15M PRN PO DECREASED GLUCOSE; Start 09/07/16 at 11:00 Glucose (Glutose) 22.5 gm Q15M PRN PO DECREASED GLUCOSE; Start 09/07/16 at 11: 00 Dextrose (D50w Syringe) 25 ml Q15M PRN IV DECREASED GLUCOSE; Start 09/07/16 at 11:00 Dextrose (D50w Syringe) 50 ml Q15M PRN IV DECREASED GLUCOSE; Start 09/07/16 at 11:00 Glucagon (Glucagen) 1 mg Q15M PRN IM DECREASED GLUCOSE; Start 09/07/16 at 11:00 Glucose (Glutose) 15 gm Q15M PRN BUCCAL DECREASED GLUCOSE; Start 09/07/16 at 11 :00 Miscellaneous Information (*Order Clarification Bulletin) MEDICATION REQUIRES CLARIFICATI... Q8H XX ; Start 09/07/16 at 11:30 Metoprolol Tartrate (Lopressor) 50 mg BID PO Last administered on 09/09/16 09: 01; Admin Dose 50 MG; Start 09/07/16 at 21:00 Zolpidem Tartrate (Ambien) 5 mg HS PRN PO INSOMNIA Last administered on 22:04; Admin Dose 5 MG; Start 09/07/16 at 17:00 Insulin Glargine (Lantus) 15 unit DAILY@20 SC Last administered on 09/08/16 22 :05; Admin Dose 15 UNIT; Start 09/07/16 at 20:00 Diagnostic Test (Pha) (Accu-Chek) 1 ea 02 XX ; Start 09/08/16 at 02:00 Methylprednisolone Sodium Succinate (Solu-Medrol) 40 mg Q8 IV Last administered on 09/09/16 06:06; Admin Dose 40 MG; Start 09/08/16 at 14:00 Azithromycin (Zithromax) 500 mg DAILY PO Last administered on 09/09/16 09:00; Admin Dose 500 MG; Start 09/08/16 at 13:30 KADIE BRYANT MD September 09, 2016 14:00
[2016-09-09] MEDS: INSULIN GLARGINE [LANtus] 3 ML PEN SC SCH (20:46)
[2016-09-09] MEDS: ZOLPIDEM 5 MG TAB PO PRN (21:44)
[2016-09-10] VITALS (12 sets, daily range): BP systolic 109–151; BP diastolic 54–72; PULSE 59–73; RESP 16–19
[2016-09-10] MEDS: ACCU-CHEK XX SCH (01:58)
[2016-09-10] MEDS: [UNRECOGNIZED DRUG - OTHER] XX SCH (03:30)
[2016-09-10] MEDS: CANAGLIFLOZIN XX SCH (03:30)
[2016-09-10] MEDS: PANTOPRAZOLE (EC) 40 MG TAB PO SCH ×2 (05:43→18:44)
[2016-09-10] MEDS: METHYLPREDNISOLONE 40 MG INJ IV SCH ×2 (05:43→21:24)
[2016-09-10 08:31] LABS: ADD SCAN DIFF NO
[2016-09-10 08:36] LABS: BASOPHILS % 0.1 % (0.0-2.0); HEMOGLOBIN 14.1 g/dl (12.0-16.0); LYMPHOCYTES # 2.1 10^3/ul (0.8-2.9); MEAN CORPUSCULAR HEMOGLOBIN 24.6 pg (29.0-33.0); MEAN CORPUSCULAR VOLUME 81.9 fl (82.0-101.0); MEAN PLATELET VOLUME 12.1 fl (7.4-10.4); MONOCYTE # 0.5 10^3/ul (0.3-0.9); MONOCYTES % 3.9 % (0.0-11.0); NEUTROPHIL # 11.2 10^3/ul (1.6-7.5); NEUTROPHILS % 80.7 % (39.0-77.0); PLATELET COUNT 256 10^3/UL (140-415); RED BLOOD COUNT 5.74 10^6/ul (4.20-5.40); RED CELL DISTRIBUTION WIDTH 15.4 % (11.5-14.5); WHITE BLOOD COUNT 13.9 10^3/ul (4.8-10.8)
[2016-09-10] MEDS: AZITHROMYCIN 250 MG TAB PO SCH (08:56)
[2016-09-10] MEDS: metFORMIN 500 MG TAB PO SCH ×2 (08:56→18:44)
[2016-09-10] MEDS: ACETAMINOPHEN 325 MG TAB PO PRN ×2 (08:56→23:13)
[2016-09-10] MEDS: LINAGLIPTIN 5 MG TABLET PO SCH (08:57)
[2016-09-10] MEDS: INSULIN ASPART [NOVOLOG] 3 ML PEN SC SCH ×7 (09:03→21:32)
[2016-09-10] MEDS: METOPROLOL 50 MG TAB PO SCH ×2 (09:06→21:25)
[2016-09-10 09:10] LABS: CALCIUM 9.8 mg/dl (8.4-10.2); CREATININE 0.66 mg/dl (0.44-1.00)
[2016-09-10] MEDS: ENOXAPARIN 40 MG/0.4 ML SYG SC SCH (09:11)
[2016-09-10 09:22] LABS: POTASSIUM 5.4 mmol/L (3.5-5.1)
--- NOTE | 2016-09-10 14:20 | PDOCDIS ---
Discharge Instructions CONDITION Patient Condition: Stable HOME CARE INSTRUCTIONS: Special Diet: 200 ronan ADA ACTIVITY: Activity Restrictions: Slowly Increase Activity FOLLOW UP/APPOINTMENTS Appointments Please take your medications, see your clinic doctor in 1-2 weeks. MITCHEL MONTANA September 10, 2016 14:20
--- NOTE | 2016-09-10 14:20 | CONS ---
Date/Time of Note Date/Time of Note DATE: 09/10/16 TIME: 14:18 Consult Date/Type/Reason Admit Date/Time September 07, 2016 at 05:56 Initial Consult Date 09/08/16 Type of Consultation: Pulm Subjective No overnight events. Objective Vital Signs Date Time Temp Pulse Resp B/P Pulse Ox O2 Delivery O2 Flow Rate FiO2 09/10/16 12:11 59 09/10/16 11:35 98.0 19 151/72 92 09/09/16 02:57 3.0 09/08/16 20:00 Nasal Cannula 09/08/16 01:02 21 Intake and Output 09/09/16 09/09/16 09/10/16 15:00 23:00 07:00 Intake Total 950 ml 400 ml Output Total 850 ml Balance 100 ml 400 ml Exam HEENT: Neck supple; no JVD; no LAD CVS: RRR, S1 and S2 CHEST: + exp wheezing ABD: Soft, NT, + BS EXT: No c/c/e Results/Medications Result Diagram: 09/10/16 0705 09/10/16 0705 Results 24 hrs Laboratory Tests Test 09/09/16 17:23 09/09/16 20:15 09/10/16 01:52 09/10/16 07:05 Bedside Glucose 272 H 297 H 245 H White Blood Count 13.9 H Red Blood Count 5.74 H Hemoglobin 14.1 Hematocrit 47.0 Mean Corpuscular Volume 81.9 L Mean Corpuscular Hemoglobin 24.6 L Mean Corpuscular Hemoglobin Concent 30.0 L Red Cell Distribution Width 15.4 H Platelet Count 256 Mean Platelet Volume 12.1 H Neutrophils % 80.7 H Lymphocytes % 15.0 Monocytes % 3.9 Eosinophils % 0.0 Basophils % 0.1 Nucleated Red Blood Cells % 0.0 Neutrophils # 11.2 H Lymphocytes # 2.1 Monocytes # 0.5 Eosinophils # 0.0 Basophils # 0.0 Nucleated Red Blood Cells # 0.0 Sodium Level 137 Potassium Level 5.4 H Chloride Level 96 L Carbon Dioxide Level 33 H Anion Gap 13 # Blood Urea Nitrogen 26 H Creatinine 0.66 Glucose Level 235 H Calcium Level 9.8 Test 09/10/16 07:55 09/10/16 12:16 Bedside Glucose 204 207 Medications Current Medications Lorazepam (Ativan) 0.5 mg Q6H PRN IV ANXIETY; Start 09/07/16 at 09:30 Ondansetron HCl (Zofran Inj) 4 mg Q6H PRN IV NAUSEA AND/OR VOMITING; Start at 09:30 Acetaminophen (Tylenol Tab) 650 mg Q6H PRN PO PAIN LEVEL 1-3 OR FEVER Last administered on 09/10/16 08:56; Admin Dose 650 MG; Start 09/07/16 at 09:30 Morphine Sulfate (morphine) 2 mg Q4H PRN IV PAIN LEVEL 7-10; Start 09/07/16 at 09:30 Enoxaparin Sodium (Lovenox) 40 mg DAILY SC Last administered on 09/10/16 09:11 ; Admin Dose 40 MG; Start 09/08/16 at 09:00 Ergocalciferol (Drisdol) 50,000 unit Q7D PO ; Start 09/14/16 at 09:00 Miscellaneous Information 100 mg DAILY XX ; Start 09/08/16 at 09:00; Status UNV Patient Own Medication 1 ea DAILY@21 SC ; Start 09/09/16 at 21:00; Status Future Hold Pantoprazole (Protonix Tab) 40 mg DAILY@06,18 PO Last administered on 05:43; Admin Dose 40 MG; Start 09/07/16 at 18:00 Linagliptin (Tradjenta) 5 mg DAILY PO Last administered on 09/10/16 08:57; Admin Dose 5 MG; Start 09/07/16 at 11:00 Miscellaneous Information 1 ea NOTE XX ; Start 09/07/16 at 11:00 Glucose (Glutose) 15 gm Q15M PRN PO DECREASED GLUCOSE; Start 09/07/16 at 11:00 Glucose (Glutose) 22.5 gm Q15M PRN PO DECREASED GLUCOSE; Start 09/07/16 at 11: 00 Dextrose (D50w Syringe) 25 ml Q15M PRN IV DECREASED GLUCOSE; Start 09/07/16 at 11:00 Dextrose (D50w Syringe) 50 ml Q15M PRN IV DECREASED GLUCOSE; Start 09/07/16 at 11:00 Glucagon (Glucagen) 1 mg Q15M PRN IM DECREASED GLUCOSE; Start 09/07/16 at 11:00 Glucose (Glutose) 15 gm Q15M PRN BUCCAL DECREASED GLUCOSE; Start 09/07/16 at 11 :00 Miscellaneous Information (*Order Clarification Bulletin) MEDICATION REQUIRES CLARIFICATI... Q8H XX ; Start 09/07/16 at 11:30 Metoprolol Tartrate (Lopressor) 50 mg BID PO Last administered on 09/10/16 09: 06; Admin Dose 50 MG; Start 09/07/16 at 21:00 Zolpidem Tartrate (Ambien) 5 mg HS PRN PO INSOMNIA Last administered on 21:44; Admin Dose 5 MG; Start 09/07/16 at 17:00 Insulin Glargine (Lantus) 15 unit DAILY@20 SC Last administered on 09/09/16 20 :46; Admin Dose 15 UNIT; Start 09/07/16 at 20:00 Diagnostic Test (Pha) (Accu-Chek) 1 ea 02 XX ; Start 09/08/16 at 02:00 Methylprednisolone Sodium Succinate (Solu-Medrol) 40 mg Q8 IV Last administered on 09/10/16 05:43; Admin Dose 40 MG; Start 09/08/16 at 14:00 Azithromycin (Zithromax) 500 mg DAILY PO Last administered on 09/10/16 08:56; Admin Dose 500 MG; Start 09/08/16 at 13:30 Hydralazine HCl (Apresoline) 10 mg Q6H PRN IV SBP>150 mm hg ; Start 09/09/16 at 14:00 Assessment/Plan Additional Assessment/Plan IMP: 1. Exacerbation of Obstructive Lung Disease 2. JO ANN/OHS 3. Diastolic HF RECS: 1. Titrate CS 2. BD's 3. Outpatient PSG and PFTs HOUSTON MCCARTHY MD September 10, 2016 14:20
[2016-09-10] MEDS ORDERED: PRED20TA PO (14:23)
[2016-09-10] MEDS ORDERED: CARV6.25 PO (14:23)
[2016-09-10] MEDS ORDERED: PRED10TA PO (14:23)
[2016-09-10] MEDS ORDERED: FURO-110 PO (14:24)
[2016-09-10] MEDS ORDERED: AZIT250T6 PO (14:30)
[2016-09-10] MEDS ORDERED: HYDR-906 PO (14:30)
--- NOTE | 2016-09-10 15:45 | DS ---
DATE OF ADMISSION: 09/07/2016 DATE OF DISCHARGE: 09/10/2016 HOSPITAL COURSE: This is a 65-year-old female originally admitted on 09/07/2016 , being discharged home pending clearance from cardiology and renal teams on 09/10/2016. The patient came in initially with cough and some shortness of breath. She was diagnosed with both CHF and asthma exacerbation. She was admitted, seen by cardiology, renal and pulmonary teams. She was given breathing treatment s as well as low-dose beta blockers and steroids and diuretics as well. Her breathing symptoms impr leydi. Eventually, she was able to ambulate and tolerate a p.o. diet. She was also found with some hyperkalemia and her Valsartan medication was held for that, and potassium was trending down by the time of discharge as well. She had some slight leukocytosis that was thought to be secondary to the steroids that were given, as there were no fevers. ____cultures ____. She was also on antibiotics for a few days as well. She was able to ambulate and tolerate a p.o. diet and if she is able to be cleared by cardiology and renal teams today, she will be discharged home today in improved condition . If she goes home today, she will be sent with the following medications: 1. Azithromycin 500 mg p.o. daily for 3 more days. 2. Coreg 6.25 mg b.i.d. 3. Lasix 20 mg daily. 4. [place] 5/325 one tab p.o. q.12h. p.r.n. 5. Prednisone 40 mg p.o. daily for 2 days, then 20 mg p.o. daily for 2 days, then 10 mg p.o. b.i.d. for 2 days, then discontinue. 6. Aspirin 81 mg daily. 7. Invokana 100 mg daily. 8. Vitamin D2 50,000 units q. weekly. 9. Victoza 3 pack, 1.8 subcu daily. 10. Prilosec 20 mg b.i.d. 11. Janumet one tab b.i.d. She may follow up with primary care doctor in the clinic in the next 1 to 2 weeks. FINAL DIAGNOSES: 1. Hypoxia, shortness of breath secondary to asthma exacerbation and congestive heart failure. Of note, she had an echocardiogram performed on this admission and it showed ejection fraction of 70%, hyperdynamic left ventricular systolic function, normal left ventricular cavity size. There was sharita e stage I diastolic dysfunction present; no significant valvular stenosis or regurgitation seen. 2. Essential hypertension. 3. Type 2 diabetes. 4. Obesity. 5. History of skin and breast cancer. 6. History of asthma. 7. Mild acute decompensated diastolic congestive heart failure, improved. 8. Chronic gastritis. Time spent discharging patient 50 minutes. Dictated By: MITCHEL BERGERON Conf#: [id number] DID#: [id number]
[2016-09-10] MEDS: FUROSEMIDE 20 MG TAB PO SCH (16:08)
[2016-09-10] MEDS: INSULIN GLARGINE [LANtus] 3 ML PEN SC SCH (21:32)
[2016-09-10] MEDS: ZOLPIDEM 5 MG TAB PO PRN (23:13)
[2016-09-11] VITALS: BP 132/81; RESP 17
[2016-09-11 00:03] VITALS: PULSE 63
[2016-09-11] MEDS: ACCU-CHEK XX SCH (02:00)
[2016-09-11 04:00] VITALS: BP 126/74; RESP 16
[2016-09-11 04:17] VITALS: PULSE 83
[2016-09-11] MEDS: PANTOPRAZOLE (EC) 40 MG TAB PO SCH (05:38)
[2016-09-11] MEDS: FUROSEMIDE 20 MG TAB PO SCH (05:38)
[2016-09-11 07:26] VITALS: BP 123/61; RESP 16
[2016-09-11] MEDS: metFORMIN 500 MG TAB PO SCH (07:37)
[2016-09-11] MEDS: INSULIN ASPART [NOVOLOG] 3 ML PEN SC SCH ×2 (07:38)
[2016-09-11] MEDS: ACETAMINOPHEN 325 MG TAB PO PRN (07:43)
[2016-09-11 08:06] LABS: ADD SCAN DIFF NO
[2016-09-11] MEDS: LINAGLIPTIN 5 MG TABLET PO SCH (08:07)
[2016-09-11] MEDS: METHYLPREDNISOLONE 40 MG INJ IV SCH (08:07)
[2016-09-11] MEDS: AZITHROMYCIN 250 MG TAB PO SCH (08:07)
[2016-09-11] MEDS: METOPROLOL 50 MG TAB PO SCH (08:08)
[2016-09-11] MEDS: ENOXAPARIN 40 MG/0.4 ML SYG SC SCH (08:13)
[2016-09-11 08:20] LABS: BASOPHILS % 0.1 % (0.0-2.0); HEMATOCRIT 44.7 % (37.0-47.0); HEMOGLOBIN 13.4 g/dl (12.0-16.0); LYMPHOCYTES % 16.9 % (15.0-51.0); MEAN CORPUSCULAR HEMOGLOBIN 24.2 pg (29.0-33.0); MEAN CORPUSCULAR VOLUME 80.8 fl (82.0-101.0); MEAN PLATELET VOLUME 12.5 fl (7.4-10.4); MONOCYTE # 0.4 10^3/ul (0.3-0.9); NEUTROPHIL # 9.3 10^3/ul (1.6-7.5); NEUTROPHILS % 79.4 % (39.0-77.0); PLATELET COUNT 243 10^3/UL (140-415); RED BLOOD COUNT 5.53 10^6/ul (4.20-5.40); WHITE BLOOD COUNT 11.7 10^3/ul (4.8-10.8)
[2016-09-11 08:41] LABS: CALCIUM 9.5 mg/dl (8.4-10.2); CREATININE 0.58 mg/dl (0.44-1.00); POTASSIUM 4.7 mmol/L (3.5-5.1)
--- NOTE | 2016-09-11 10:13 | PN ---
Date/Time of Note Date/Time of Note DATE: 09/11/16 TIME: 10:12 Assessment/Plan VTE Prophylaxis VTE Prophylaxis Intervention: SCD's Lines/Catheters IV Catheter Type (from Nrs): Saline Lock Urinary Cath still in place: No Assessment/Plan Assessment/Plan Shortness of breath Asthma exacerbation Mild acute decompensated diastolic congestive heart failure Hyperdynamic left ventricular systolic function SVT Hypertension Diabetes Obesity Skin and breast cancer - Patient with likely asthma exacerbation. Currently undergoing pulmonary treatment. Diuretics have been stopped. Patient with rising potassium, would hold valsartan. No further episodes of SVT seen on telemetry Subjective 24 Hr Interval Summary Free Text/Dictation The patient wih atypical pain Exam/Review of Systems Vital Signs Vitals Vital Signs Date Time Temp Pulse Resp B/P Pulse Ox O2 Delivery O2 Flow Rate FiO2 09/11/16 07:46 Nasal Cannula 2.0 09/11/16 07:26 97.8 63 16 123/61 92 09/08/16 01:02 21 Intake and Output 09/10/16 09/10/16 09/11/16 15:00 23:00 07:00 Intake Total 600 ml 500 ml Balance 600 ml 500 ml Results Result Diagram: 09/11/16 0620 09/11/16 0630 Results 24 hrs Laboratory Tests Test 09/10/16 12:16 09/10/16 18:35 09/10/16 21:28 09/11/16 06:20 Bedside Glucose 207 204 204 White Blood Count 11.7 H Red Blood Count 5.53 H Hemoglobin 13.4 Hematocrit 44.7 Mean Corpuscular Volume 80.8 L Mean Corpuscular Hemoglobin 24.2 L Mean Corpuscular Hemoglobin Concent 30.0 L Red Cell Distribution Width 15.0 H Platelet Count 243 Mean Platelet Volume 12.5 H Neutrophils % 79.4 H Lymphocytes % 16.9 Monocytes % 3.0 Eosinophils % 0.0 Basophils % 0.1 Nucleated Red Blood Cells % 0.0 Neutrophils # 9.3 H Lymphocytes # 2.0 Monocytes # 0.4 Eosinophils # 0.0 Basophils # 0.0 Nucleated Red Blood Cells # 0.0 Test 09/11/16 06:30 09/11/16 07:36 Sodium Level 139 Potassium Level 4.7 Chloride Level 96 L Carbon Dioxide Level 30 Anion Gap 18 H Blood Urea Nitrogen 30 H Creatinine 0.58 Glucose Level 216 Calcium Level 9.5 Bedside Glucose 193 Medications Medications Current Medications Lorazepam (Ativan) 0.5 mg Q6H PRN IV ANXIETY; Start 09/07/16 at 09:30 Ondansetron HCl (Zofran Inj) 4 mg Q6H PRN IV NAUSEA AND/OR VOMITING; Start at 09:30 Acetaminophen (Tylenol Tab) 650 mg Q6H PRN PO PAIN LEVEL 1-3 OR FEVER Last administered on 09/11/16 07:43; Admin Dose 650 MG; Start 09/07/16 at 09:30 Morphine Sulfate (morphine) 2 mg Q4H PRN IV PAIN LEVEL 7-10; Start 09/07/16 at 09:30 Enoxaparin Sodium (Lovenox) 40 mg DAILY SC Last administered on 09/11/16 08:13 ; Admin Dose 40 MG; Start 09/08/16 at 09:00 Ergocalciferol (Drisdol) 50,000 unit Q7D PO ; Start 09/14/16 at 09:00 Miscellaneous Information 100 mg DAILY XX ; Start 09/08/16 at 09:00; Status UNV Patient Own Medication 1 ea DAILY@21 SC ; Start 09/09/16 at 21:00; Status Future Hold Pantoprazole (Protonix Tab) 40 mg DAILY@06,18 PO Last administered on 05:38; Admin Dose 40 MG; Start 09/07/16 at 18:00 Linagliptin (Tradjenta) 5 mg DAILY PO Last administered on 09/11/16 08:07; Admin Dose 5 MG; Start 09/07/16 at 11:00 Miscellaneous Information 1 ea NOTE XX ; Start 09/07/16 at 11:00 Glucose (Glutose) 15 gm Q15M PRN PO DECREASED GLUCOSE; Start 09/07/16 at 11:00 Glucose (Glutose) 22.5 gm Q15M PRN PO DECREASED GLUCOSE; Start 09/07/16 at 11: 00 Dextrose (D50w Syringe) 25 ml Q15M PRN IV DECREASED GLUCOSE; Start 09/07/16 at 11:00 Dextrose (D50w Syringe) 50 ml Q15M PRN IV DECREASED GLUCOSE; Start 09/07/16 at 11:00 Glucagon (Glucagen) 1 mg Q15M PRN IM DECREASED GLUCOSE; Start 09/07/16 at 11:00 Glucose (Glutose) 15 gm Q15M PRN BUCCAL DECREASED GLUCOSE; Start 09/07/16 at 11 :00 Miscellaneous Information (*Order Clarification Bulletin) MEDICATION REQUIRES CLARIFICATI... Q8H XX ; Start 09/07/16 at 11:30 Metoprolol Tartrate (Lopressor) 50 mg BID PO Last administered on 09/11/16 08: 08; Admin Dose 50 MG; Start 09/07/16 at 21:00 Zolpidem Tartrate (Ambien) 5 mg HS PRN PO INSOMNIA Last administered on 23:13; Admin Dose 5 MG; Start 09/07/16 at 17:00 Insulin Glargine (Lantus) 15 unit DAILY@20 SC Last administered on 09/10/16 21 :32; Admin Dose 15 UNIT; Start 09/07/16 at 20:00 Diagnostic Test (Pha) (Accu-Chek) 1 ea 02 XX ; Start 09/08/16 at 02:00 Azithromycin (Zithromax) 500 mg DAILY PO Last administered on 09/11/16 08:07; Admin Dose 500 MG; Start 09/08/16 at 13:30 Hydralazine HCl (Apresoline) 10 mg Q6H PRN IV SBP>150 mm hg ; Start 09/09/16 at 14:00 Methylprednisolone Sodium Succinate (Solu-Medrol) 40 mg BID IV Last administered on 09/11/16 08:07; Admin Dose 40 MG; Start 09/10/16 at 21:00 Furosemide (Lasix) 20 mg DAILY@06 PO Last administered on 09/11/16 05:38; Admin Dose 20 MG; Start 09/10/16 at 14:30 MEGHAN CARRANZA MD September 11, 2016 10:12
[2016-09-11 10:41] VITALS: PULSE 63
--- NOTE | 2016-09-11 12:53 | CONS ---
Date/Time of Note Date/Time of Note DATE: 09/11/16 TIME: 12:52 Consult Date/Type/Reason Admit Date/Time September 07, 2016 at 05:56 Initial Consult Date 09/08/16 Type of Consultation: Pulm Subjective Patient doing well. Being d/c'ed Objective Vital Signs Date Time Temp Pulse Resp B/P Pulse Ox O2 Delivery O2 Flow Rate FiO2 09/11/16 10:41 63 09/11/16 07:46 Nasal Cannula 2.0 09/11/16 07:26 97.8 16 123/61 92 09/08/16 01:02 21 Intake and Output 09/10/16 09/10/16 09/11/16 15:00 23:00 07:00 Intake Total 600 ml 500 ml Balance 600 ml 500 ml Exam HEENT: Neck supple; no JVD; no LAD CVS: RRR, S1 and S2 CHEST: + exp wheezing ABD: Soft, NT, + BS EXT: No c/c/e Results/Medications Result Diagram: 09/11/16 0620 09/11/16 0630 Results 24 hrs Laboratory Tests Test 09/10/16 18:35 09/10/16 21:28 09/11/16 06:20 09/11/16 06:30 Bedside Glucose 204 204 White Blood Count 11.7 H Red Blood Count 5.53 H Hemoglobin 13.4 Hematocrit 44.7 Mean Corpuscular Volume 80.8 L Mean Corpuscular Hemoglobin 24.2 L Mean Corpuscular Hemoglobin Concent 30.0 L Red Cell Distribution Width 15.0 H Platelet Count 243 Mean Platelet Volume 12.5 H Neutrophils % 79.4 H Lymphocytes % 16.9 Monocytes % 3.0 Eosinophils % 0.0 Basophils % 0.1 Nucleated Red Blood Cells % 0.0 Neutrophils # 9.3 H Lymphocytes # 2.0 Monocytes # 0.4 Eosinophils # 0.0 Basophils # 0.0 Nucleated Red Blood Cells # 0.0 Sodium Level 139 Potassium Level 4.7 Chloride Level 96 L Carbon Dioxide Level 30 Anion Gap 18 H Blood Urea Nitrogen 30 H Creatinine 0.58 Glucose Level 216 Calcium Level 9.5 Test 09/11/16 07:36 Bedside Glucose 193 Assessment/Plan Additional Assessment/Plan IMP: 1. Exacerbation of Obstructive Lung Disease 2. JO ANN/OHS 3. Diastolic HF RECS: 1. Titrate CS 2. Follow-up Dr. Jurado in 1 week 3. Outpatient PSG and PFTs HOUSTON MCCARTHY MD September 11, 2016 12:53
[2016-09-14] MEDS ORDERED: ERGOCALCIFEROL 50,000 UNIT CAP PO SCH (09:00)
== END 2016-09-11 11:35 | disposition home or self-care (01) | DRG 292 ==
LOC: FTE 03:18 → MS4 05:56
PROVIDERS: ADMIT Internal Medicine; ATTEND Internal Medicine
DX: I50.33 Acute on chronic diastolic (congestive) heart failure (principal); J45.901 Unspecified asthma with (acute) exacerbation; I47.1 Supraventricular tachycardia; Z68.41 Body mass index [BMI] 40.0-44.9, adult; J20.9 Acute bronchitis, unspecified; I11.0 Hypertensive heart disease with heart failure; E11.9 Type 2 diabetes mellitus without complications; E66.9 Obesity, unspecified; R09.02 Hypoxemia; K29.50 Unspecified chronic gastritis without bleeding; Z85.3 Personal history of malignant neoplasm of breast; Z85.828 Personal history of other malignant neoplasm of skin
CPT/HCPCS: 71010; 80048; 80053; 80061; 81001; 82962; 83036; 83735; 83880; 84443; 84484; 85025; 93005; 93306; 94640; 94644; 94645; 94664; J1940; J1650; J1815; J2920; J2930; J3475

== ENCOUNTER 2017-09-09 23:35 | Inpatient (IN) | END 2017-09-14 19:25 | disposition home or self-care (01) | DRG 872 ==